=== PATIENT | female | born 1955 | race Caucasian/White ===

== ENCOUNTER → 2016-07-29 | Outpatient (CLI) | payer BC ==
[2016-07-29 14:02] LABS: BLOOD UREA NITROGEN 11 mg/dL (7-22); BUN/CREATININE RATIO 18.33 (6-20); CALCIUM 8.9 mg/dL (8.7-10.7); EST GLOMERULAR FILTRATION > 60 (>60 ml/min/1.73m(2))
== END ==
LOC: MOB LAB 10:33
PROVIDERS: ATTEND Family Medicine
DX: M81.0 Age-related osteoporosis without current pathological fracture (principal)
CPT/HCPCS: 36415; 80048

== ENCOUNTER → 2016-08-01 | Outpatient (CLI) | payer BC ==
--- NOTE | 2016-08-01 15:31 | DI ---
RIGHT SHOULDER, 08/01/2016 10:51 AM: Clinical History: Acute right shoulder pain. Previous Exam: None at this facility. 3 views are submitted. There is no acute soft tissue, osseous, or joint abnormality. The visualized p ortions of the right lung including the apex are normal. Reading: Normal right shoulder exam.
== END ==
LOC: MOB RAD 10:53
PROVIDERS: ATTEND Family Medicine
DX: M25.511 Pain in right shoulder (principal); F17.200 Nicotine dependence, unspecified, uncomplicated
CPT/HCPCS: 73030

== ENCOUNTER → 2016-08-12 | Outpatient (CLI) | payer BC ==
[2016-08-12 15:08] LABS: HEMATOCRIT 40.1 % (37.0-47.0); HEMOGLOBIN 13.4 g/dL (12.0-16.0); MEAN CORPUSCULAR HEMOGLOBIN 31.7 PG (27-31); MEAN CORPUSCULAR HGB CONC 33.4 g/dL (33-37); MEAN CORPUSCULAR VOLUME 94.8 FL (81-99); MEAN PLATELET VOLUME 10.1 FL (7.4-12.2); RED BLOOD COUNT 4.23 10^6/uL (4.20-5.40)
[2016-08-12 15:19] LABS: BUN/CREATININE RATIO 27.27 (6-20); SERUM ALBUMIN 3.7 g/dL (3.5-4.8)
== END ==
LOC: MOB LAB 14:12
PROVIDERS: ATTEND Family Medicine
DX: I10 Essential (primary) hypertension (principal); R53.83 Other fatigue; E03.9 Hypothyroidism, unspecified; R42 Dizziness and giddiness; F17.200 Nicotine dependence, unspecified, uncomplicated
CPT/HCPCS: 36415; 80053; 84443; 85027

== ENCOUNTER → 2016-09-15 | Outpatient (CLI) | payer OTHER, BC ==
--- NOTE | 2016-09-15 14:57 | DI ---
MRI ORB/FAC AND/OR NCK W/WO CURRY,09/15/2016 10:05 AM: Clinical History: History of acoustic neuroma. Previous Exam: MRI cervical spine performed December 15, 2006 Findings: Multiplanar MR images are obtained through the brain both before and after the intravenous administra tion of contrast. Postsurgical changes are noted consistent with a prior right craniotomy. Posterior fossa is unremarkable. The upper cervical spine is also unremarkable. The orbits and parana kraig sinuses are normal. There is no abnormally restricted diffusion. High-resolution images through the posterior fossa demonstrate normal-appearing cranial nerves. The internal auditory canals are within normal limits. The cochlea and semicircular canals are within normal limits. The major vascular flow voids are unremarkable. The orbits are within normal limits. There is no abnormal enhancement. There is no abnormal FLAIR signal. There is mild rightward deviation of bony nasal septum. Impression: 1. No evidence of acoustic neuroma. 2. Postsurgical changes. 3. No other intracranial abnormalities.
== END ==
LOC: MRI 10:01
PROVIDERS: ATTEND Family Medicine
DX: Z86.018 Personal history of other benign neoplasm (principal)
CPT/HCPCS: 70543

== ENCOUNTER 2017-05-18 14:06 | Inpatient (IN) ==
--- NOTE | 2017-05-18 14:22 | PDOC ---
Nausea/Vomiting/Diarrhea HPI - General Chief Complaint: Nausea / Vomiting / Diarrhea Stated Complaint: stomach pain Date Seen by Provider: 05/18/17 Time Seen by Provider: 14:22 Source: POSITIVE: Patient, Old records Exam Limitations: POSITIVE: No limitations Nurse's Notes Reviewed & Considered: Yes - History of Present Illness Initial Comments: This is a well-developed, thin, 61-year-old female who appears older than her stated age. She comes in today complaining of nausea, and abdominal pain. Patient was seen in the emergency room 2 days ago for the same. She was diagnosed with ileitis and started on ciprofloxacin and Flagyl. She was heme positive on digital rectal exam and had external hemorrhoids present. She states she has not taking any medications until this morning because her pharmacy was closed Thursday even though she had been told that another pharmacy was open. She took some Zofran and her Cipro and Flagyl this morning at 9:30 and continued to have abdominal pain. She states that is she drinks anything at all she feels very nauseous and wants to throw up. She denies any diarrhea at this time. She denies any fevers, no chest pain or shortness of breath, no headache, no hematuria or dysuria. Patient underwent a cholecystectomy on May 06 and approximately 5 days ago developed symptoms of nausea and abdominal pain. Body Location Affected: REPORTS: Abdomen Timing: REPORTS: Constant Duration: <1 week Severity: Severe Quality: REPORTS: "Pain" Abdominal Pain Onset Location: REPORTS: RLQ, LLQ Abdominal Pain Radiation: REPORTS: RLQ, LLQ Context: REPORTS: None Modifying Factors: improves with: Nothing Associated Symptoms: REPORTS: Abdominal Pain Recent Care Received: REPORTS: Recently Seen, Treated by MD Any Prior Injuries Related to Current Complaint?: No - Patient Home Medications Home Medications: Home Medications Aspirin 1 tab ORAL QD tab 07/15/08 Calcium Carbonate/Vitamin D3 [Caltrate 600 W-D Tablet] 1 ea PO TID 07/15/08 Denosumab [Prolia] 60 mg SUBCUT Every 6 months ml 02/25/13 Omeprazole [Prilosec] 1 cap ORAL QD #30 cap 12/08/14 Albuterol Sulfate [Ventolin Hfa] 1 - 2 puff INH Q4-6H PRN #1 puff 02/14/16 Gabapentin 1 tab ORAL TID #90 tab 02/14/16 Tiotropium [place] [Spiriva Respimat] 1 puff INH QD #1 inh 02/14/16 Venlafaxine HCl ER [Effexor Xr] 2 cap ORAL QD #30 cap 02/14/16 Spironolact/Hydrochlorothiazid [Spironolactone-Hctz 25-25 Tab] 1 tab PO QD #30 tab 10/31/16 doxazosin 1 mg tablet 1 mg PO QHS #30 tab 03/09/17 levothyroxine 50 mcg tablet 50 mcg PO QD #90 tab 03/09/17 medroxyprogesterone 5 mg tablet 5 mg PO QD #30 tab 03/09/17 simvastatin 40 mg tablet 1 tab ORAL QHS #90 tab 03/09/17 valacyclovir 500 mg tablet 1 tab ORAL QD #90 tab 03/09/17 carvedilol 12.5 mg tablet 1 tab PO BID #60 tab 04/09/17 HYDROcodone/APAP 5/325 Tab [Saline 5/325 Tab] 1 - 2 tab PO Q4H PRN #30 tab conjugated estrogens 1.25 mg tablet 1.25 mg PO QDAY #30 tab 05/11/17 - Patient Allergies Allergies/Adverse Reactions: Allergies 3 Allergy/AdvReac Type Severity Reaction Status Date / Time oxycodone HCl [From Percocet] Allergy Mild NAUSEA Verified 05/18/17 14:18 Past Medical History - heen HEENT History: Hard of Hearing, Dentures/Partials Additional HEENT History: right ear Cardiovascular History: Hypertension, CAD, Hyperlipidemia Respiratory History: COPD Gastrointestinal History: GERD, Gallbladder Disease, Other (please comment) Additional Gastrointestinal History: chronic constipation Genitourinary History: Denies History Endocrine History: Hypothyroidism, Other (please comment) Additional Endocrine History: THYROID NODULE Musculoskeletal History: Osteoporosis, Back Pain, Joint Pain, Other (please comment) Prosthesis or Implant: Yes (neck, right eye lid) Additional Musculoskeletal History: LUMBAR SPONDYLOSIS. CERVICAL SPINE PAIN. OVERWEIGHT Neurological History: Denies History, Frequent Headaches Blood Disorders: Denies History Additional Blood Disorders History: CHRONIC HEPC- took the medication and come back clear Psychiatric History: Depression, Other (please comment) Additional Psychiatric History: INSOMNIA History of Sexually Transmitted Diseases: No Cancer History: Denies History History of MDRO: No History of Other Communicable Diseases: No Alcohol Use: None In the Past 12 Months, Have Used or Abuse Any Substance: None Previous Surgical History: Yes Type / Date of Surgery: TONSILLECTOMY. NEUROLOGIC SURGERY- brain tumor removed. LUMBAR DECOMPRESSION. left RCR. eye lid surgery. left ring finger sx. CERVICAL SPINE FUSION Anesthesia Reactions: No Malignant Hyperthermia: No Significant Family History: No pertinent family hx ROS - Limitations ROS Limitations: No Limitations Constitution: REPORTS: Denies Symptoms Cardiovascular: REPORTS: Denies Cardiac Symptoms Respiratory: REPORTS: Denies Resp Symptoms Neurological: REPORTS: Denies Neuro Symptoms Gastrointestinal: REPORTS: Abdominal Pain, Nausea Musculoskeletal: REPORTS: Denies MS Symptoms Genitourinary: REPORTS: Denies Symptoms Eyes: REPORTS: Denies Symptoms ENT: REPORTS: Denies Symptoms Skin: REPORTS: Denies Skin Symptoms Lympathic: REPORTS: Denies Lympathic Symptoms Immunologic: POSITIVE: Denies Symptoms Psychiatric: POSITIVE: Denies Psych Symptoms Nausea/Vomiting/Diarrhea Exam - General Appearance General Appearance: POSITIVE: Alert, Cooperative, No Evidence of Trauma, Moderate Distress - HEENT HEENT: POSITIVE: Head Inspection Nml, Eyes Inspection Nml, Ears Inspection Nml, Nose Inspection Nml, Oral/Dental Inspect. Nml, Pharynx Inspect. Nml, PERRL, EOMI - Neck Neck: POSITIVE: Supple, Normal Inspection, Non Tender - Respiratory Respiratory: POSITIVE: No Respiratory Distress, Breath Sounds Normal, Chest Non- Tender - Cardiovascular Cardiovascular: POSITIVE: Regular Rate and Rhythm, Heart Sounds Normal, Strong Pulses Peripheral Pulses: Radial (L): 4+ - Chest Chest: POSITIVE: Non Tender - Abdomen Abdomen: Soft: (All Quadrants), Normal Bowel Sounds: (All Quadrants), Denies Tenderness: (LUQ), (RUQ), No Splenomegaly: (All Quadrants), No Hepatomegaly: ( All Quadrants), No Guarding: (All Quadrants), No Rebound: (All Quadrants), No Palpable Pulse: (All Quadrants), No Palpabale Mass: (All Quadrants), No Distention: (All Quadrants), No Rigidity: (All Quadrants), Tenderness Noted: ( RLQ), (LLQ) - Back Back: POSITIVE: Normal Inspection - Skin Skin: POSITIVE: Intact, Normal For Race, Warm, Dry, No Rash - Extremities Extremity: Non-Tender: (All Extremities), Normal ROM: (All Extremities), Normal Inspection: (All Extremities), Pelvis Stable: (All Extremities) - Neurological / Psychological Neurological: POSITIVE: Affect Apporpriate, Oriented X3, Motor Normal, Sensation Normal N/V/D Progress - Results Reviewed by me Xrays/CTs/US Reviewed by me: Yes Discussed with Radiologist: Yes Lab Results Reviewed by Me: Yes CBC and BMP: 05/18/17 14:28 05/18/17 14:28 - Patient's Progress Pain Medication Addressed: POSITIVE: Yes Re-examine Time: 16:58 Status: POSITIVE: Improved MDM / ED Course: Patient was evaluated, an IV started, blood drawn and sent to the lab for studies, CT scan of her abdomen was obtained. Patient received a liter of normal saline, morphine sulfate, Zofran, and Invanz. Findings: CBC shows an improvement of her white count today to 12.5 which is down from 12.72 days ago. Comprehensive metabolic panel is fairly unremarkable with a potassium low at 129. CT scan shows terminal ileitis without perforation. Assessment: Terminal ileitis with abdominal pain and nausea with vomiting. Plan: Admission. - Consult Consult (If Yes, Name of Consulting MD & Time Called): Yes (Dr. Frances, 1655 hrs) Consulting MD will see pt:: POSITIVE: [facility] [place] Admit Counseled: POSITIVE: Patient, Family, RE: Lab Results, RE: Radiology Results, RE : DX, RE: Need for F/U Patient Care Time - Estimated PCT Patient Care Time (In Minutes): 45 Vital Signs - Recent Vital Signs Vital Signs: Vital Signs (Last 8 hours) Temp Pulse Resp BP Pulse Ox 05/18/17 14:06 97.7 F 91 16 196/100 97 - VS Reviewed Vital Signs Reviewed: Yes Discharge Clinical Impression: Abdominal pain, Nausea and vomiting, Terminal ileitis of small intestine Discharge Disposition: Admit to Inpatient Condition: Fair Patient Instructions Given at Discharge: Acute Nausea and Vomiting (ED), Acute Abdominal Pain (ED) Follow Up With: BRIDGETTE HAYNES [Primary Care Provider] - Date Decision to Admit to Inpatient: 05/18/17 Time Decision to Admit to Inpatient: 16:55
[2017-05-18] MEDS ORDERED: Sodium Chloride 0.9% 1,000 ML PRIMARY IV ONE (14:23)
[2017-05-18] MEDS ORDERED: ONDANSETRON 4 MG/2 ML VIAL IVP ONE ×2 (14:23→16:42)
[2017-05-18] MEDS ORDERED: MORPHINE SULFATE 4 MG/1 ML IVP ONE (14:23)
[2017-05-18 14:31] LABS: BASOPHILS # (AUTO) 0.01 10*3/UL; BASOPHILS % (AUTO) 0.1 % (0-1); EOSINOPHILS # (AUTO) 0.01 10*3/UL; EOSINOPHILS % (AUTO) 0.1 % (0-8); Hematocrit [HCT] 41.8 % (37.0-47.0); Hemoglobin [HGB] 14.2 g/dL (12.0-16.0); LYMPHOCYTES # (AUTO) 1.79 10*3/uL; MEAN CORPUSCULAR HEMOGLOBIN 31.2 PG (27-31); MEAN CORPUSCULAR VOLUME 91.9 FL (81-99); MEAN PLATELET VOLUME 9.9 FL (7.4-12.2); MONOCYTES # (AUTO) 1.12 10*3/UL (0.3-0.8); MONOCYTES % (AUTO) 8.9 % (5-15); NEUTROPHILS # (AUTO) 9.57 10*3/UL; NEUTROPHILS % (AUTO) 76.4 % (50-80); PLATELET MORPHOLOGY COMMENT NORMAL MORPHOLOGY (NORM); RBC MORPHOLOGY COMMENT NORMAL MORPHOLOGY (NORM); RED BLOOD COUNT 4.55 10^6/uL (4.20-5.40); WBC MORPHOLOGY COMMENT NORMAL MORPHOLOGY (NORM)
[2017-05-18 14:42] LABS: BLOOD UREA NITROGEN 15 mg/dL (7-22); BUN/CREATININE RATIO 18.75 (6-20); SERUM ALBUMIN 4.6 g/dL (3.5-4.8)
[2017-05-18] MEDS ORDERED: Ertapenem Inj 1 GM in Sodium Chloride 0.9% 100 ML IV ONE (15:54)
--- NOTE | 2017-05-18 16:36 | DI ---
CT Abdomen/Pelvis W Contrast,05/18/2017 2:23 PM: Clinical History: Abdominal pain. Previous Exam: May 16, 2017 Findings: Multiple helically acquired CT images are obtained through the abdomen and pelvis following the intra venous administration of 75 cc of Isovue 300. Is the liver is unremarkable except for some mild prominence of the intrahepatic biliary ducts which was not appreciated on the prior exam. The patient is status post cholecystectomy. The lung bases are clear. The pancreas is unremarkable. The spleen is also unremarkable. The appendix is normal. There is a trace amount of free fluid within the deep pelvis. The uterus and ovaries are not well evaluated, but are grossly normal. Degenerative changes of the spine are seen. There is some gentle dextroscoliosis of the mid lumbar sp ine centered at the L3/4 level. There is mild loss of intervertebral disc height at L5/S1. There is no mesenteric nor retroperitoneal lymphadenopathy. There is some thickening and inflammatory changes of the terminal ileum without obstruction. Impression: Trace amount of free fluid within the deep pelvis with some mild thickening of the terminal ileum and vague inflammatory changes. This is consistent with terminal ileitis.
--- NOTE | 2017-05-18 17:36 | PDOC ---
HPI - History of Present Illness Date of Service: 05/18/17 Chief Complaint: abd pain /nausea History of Present Illness: Is a very nice 61-year-old female comes to the ER complaining of some nausea and abdominal pain. She was seen 2 days ago in the emergency room diagnosed with colitis and was prescribed ciprofloxacin and Flagyl. She has not taken any by mouth meds at the pharmacy was closed but she did take antibiotics this morning. Continue to have abdominal pain returns to the ER he feels very nauseated and has stimulus to follow-up if she starts eating anything. No bright red blood per rectum no chest pain at this time or shortness of breath Past Medical History Medical History: COPD, GERD, Surgical History: Gallbladder surgery on May [address] Peres, had an acoustic neuroma removed from the right side of her head Tobacco Use: Current Every Day Smoker In the Past 12 Months, Have Used or Abuse Any of the Following Substance: None Medication / Allergies Home Medications: Home Medications 3 Medication Instructions Recorded Confirmed Type Aspirin 1 tab ORAL QD tab 07/15/08 05/18/17 History Calcium Carbonate/Vitamin D3 1 ea PO TID 07/15/08 05/18/17 History [Caltrate 600 W-D Tablet] Denosumab [Prolia] 60 mg SUBCUT Every 6 months ml 02/25/13 05/18/17 History Omeprazole [Prilosec] 1 cap ORAL QD #30 cap 12/08/14 05/18/17 History Albuterol Sulfate [Ventolin Hfa] 1 - 2 puff INH Q4-6H PRN #1 puff 02/14/1605/18 History Gabapentin 1 tab ORAL TID #90 tab 02/14/16 05/18/17 Rx Tiotropium [place] [Spiriva 1 puff INH QD #1 inh 02/14/16 05/18/17 Rx Respimat] Venlafaxine HCl ER [Effexor Xr] 2 cap ORAL QD #30 cap 02/14/16 05/18/17 Rx Spironolact/Hydrochlorothiazid 1 tab PO QD #30 tab 10/31/16 05/18/17 Rx [Spironolactone-Hctz 25-25 Tab] doxazosin 1 mg tablet 1 mg PO QHS #30 tab 03/09/17 05/18/17 Rx levothyroxine 50 mcg tablet 50 mcg PO QD #90 tab 03/09/17 05/18/17 Rx medroxyprogesterone 5 mg tablet 5 mg PO QD #30 tab 03/09/17 05/18/17 Rx simvastatin 40 mg tablet 1 tab ORAL QHS #90 tab 03/09/17 05/18/17 Rx valacyclovir 500 mg tablet 1 tab ORAL QD #90 tab 03/09/17 05/18/17 Rx carvedilol 12.5 mg tablet 1 tab PO BID #60 tab 04/09/17 05/18/17 Rx HYDROcodone/APAP 5/325 Tab [[place] 1 - 2 tab PO Q4H PRN #30 tab 05/06/17 Rx 5/325 Tab] conjugated estrogens 1.25 mg tablet 1.25 mg PO QDAY #30 tab 05/11/17 05/18/17 Rx Allergies/Adverse Reactions: Allergies 3 Allergy/AdvReac Type Severity Reaction Status Date / Time oxycodone HCl [From Percocet] Allergy Mild NAUSEA Verified 05/18/17 17:59 Review of Systems - Review of Systems All Systems: Reviewed & No Additional Complaints Except as Stated - Respiratory Respiratory: DENIES: Negative System Review, Cough, Sputum, Dyspnea At Rest, Dyspnea with Exertion, Pleuritic Pain, Hemoptysis, Wheezing, Other, See HPI - Cardiovascular Cardiovascular: DENIES: Negative System Review, Chest Pain, Edema, Syncope, Palpitations, Orthopnea, Paroxysmal Nocturnal Dyspnea, Other, See HPI Exam - Vitals Vital Signs: Vital Signs Temperature 97.7 F Temperature Source Temporal Artery Scan Pulse Rate [Pulse Oximeter] 91 Respiratory Rate 16 Blood Pressure [Left Arm] 196/100 Pulse Ox 97 Oxygen Delivery Method Room Air Height 5 ft 4 in Weight 120 lb - General General Appearance: No Acute Distress - Head Head Exam: Normal Inspection, Normocephalic, Atraumatic - Eye Eye Exam: POSITIVE: Normal Appearance, PERRL, EOMI, No Scleral Icterus - ENT Additonal ENT Exam Details: She had an acoustic neuroma removed many years ago which gave her deformity of her right face - Respiratory Respiratory Exam: POSITIVE: Decreased Breath Sounds - Cardiovascular Cardiovascular Exam: POSITIVE: RRR, No Murmur, No Clicks, No Gallops, No Rubs, PMI Non-Displaced - GI/Abdominal GI/Abdominal Exam: POSITIVE: Non Tender, Non Distended, Soft - Extremities Extremities Exam: POSITIVE: Normal Inspection, Full ROM, Normal Capillary Refill , No Clubbing Present, No Edema Present, No Cyanosis Present, Negative Codie's sign, Dosalis Pedis Pulses - Stong & Regular Results - Labs CBC and BMP: 05/18/17 14:28 05/18/17 14:28 Assessment and Plan - Patient Problems (1) Nausea and vomiting Current Visit: Yes Status: Acute Comment: IV antiemetics normal saline 75 an hour Code(s): R11.2 - Nausea with vomiting, unspecified (2) Terminal ileitis of small intestine Current Visit: Yes Status: Acute Comment: Invanz 1 g daily most likely will need a colonoscopy as an outpatient repeat labs in a.m. Code(s): K50.00 - Crohn's disease of small intestine without complications
[2017-05-18] MEDS ORDERED: LIDOCAINE W/ SODIUM BICARB 0.5 ML SYR SUBD PRN (17:52)
[2017-05-18] MEDS ORDERED: CALCIUM CARBONATE 500 MG (TUMS) CHEWABLE TABLET PO PRN (17:52)
[2017-05-18] MEDS ORDERED: ONDANSETRON 4 MG/2 ML VIAL IVP PRN (17:52)
[2017-05-18] MEDS ORDERED: DOCUSATE 100 MG CAPSULE PO PRN (17:52)
[2017-05-18] MEDS ORDERED: Non-Formulary Drug (Denosumab [Prolia] 60 MG) SUBCUT SCH (17:52)
[2017-05-18] MEDS: HYDROcodone-APAP 5 MG -325 MG TABLET PO PRN (19:11)
[2017-05-18] MEDS: GABAPENTIN 400 MG CAPSULE PO SCH (20:30)
[2017-05-18] MEDS: HEPARIN 5000 UNIT/1 ML SUBCUT SCH (20:30)
[2017-05-18] MEDS: Simvastatin Tab 40 MG TAB PO SCH (20:30)
[2017-05-18] MEDS: Calcium/Vit D 600mg/400u Tab 1 TAB TABLET PO SCH (20:30)
[2017-05-18] MEDS: DOXAZOSIN 2 MG TABLET PO SCH (20:30)
[2017-05-18] MEDS ORDERED: Sodium Chloride 0.9% 1,000 ML IV SCH (21:00)
[2017-05-18] MEDS: CARVEDILOL 12.5 MG TABLET PO SCH (21:02)
[2017-05-19] MEDS: HEPARIN 5000 UNIT/1 ML SUBCUT SCH ×3 (01:47→17:34)
[2017-05-19] MEDS: LEVOTHYROXINE 50 MCG TABLET PO SCH (04:48)
[2017-05-19 05:02] LABS: BASOPHILS # (AUTO) 0.01 10*3/UL; BASOPHILS % (AUTO) 0.1 % (0-1); EOSINOPHILS # (AUTO) 0.06 10*3/UL; EOSINOPHILS % (AUTO) 0.5 % (0-8); Hematocrit [HCT] 39.2 % (37.0-47.0); LYMPHOCYTES # (AUTO) 2.33 10*3/uL; MEAN CORPUSCULAR HGB CONC 33.2 g/dL (33-37); MEAN CORPUSCULAR VOLUME 93.6 FL (81-99); MEAN PLATELET VOLUME 10.8 FL (7.4-12.2); MONOCYTES # (AUTO) 0.95 10*3/UL (0.3-0.8); MONOCYTES % (AUTO) 8.3 % (5-15); NEUTROPHILS # (AUTO) 8.02 10*3/UL; NEUTROPHILS % (AUTO) 70.5 % (50-80); RED BLOOD COUNT 4.19 10^6/uL (4.20-5.40)
[2017-05-19 05:24] LABS: BLOOD UREA NITROGEN 12 mg/dL (7-22); SERUM ALBUMIN 3.6 g/dL (3.5-4.8)
[2017-05-19 05:33] LABS: PLATELET MORPHOLOGY COMMENT NORMAL MORPHOLOGY (NORM); RBC MORPHOLOGY COMMENT NORMAL MORPHOLOGY (NORM); WBC MORPHOLOGY COMMENT NORMAL MORPHOLOGY (NORM)
[2017-05-19] MEDS ORDERED: TIOTROPIUM BROMIDE INH SCH (07:00)
[2017-05-19] MEDS: HYDROcodone-APAP 5 MG -325 MG TABLET PO PRN ×2 (07:09→20:28)
[2017-05-19] MEDS: Spironolactone Tab 25 MG TAB PO SCH (07:10)
[2017-05-19] MEDS: HYDROCHLOROTHIAZIDE 25 MG TABLET PO SCH (07:10)
[2017-05-19] MEDS: OMEPRAZOLE 20 MG CAPSULE PO SCH (07:10)
[2017-05-19] MEDS: GABAPENTIN 400 MG CAPSULE PO SCH ×3 (08:47→20:30)
[2017-05-19] MEDS: VENLAFAXINE XR 75 MG CAP PO SCH (08:48)
[2017-05-19] MEDS: POTASSIUM CHLORIDE 20 MEQ TAB PO SCH ×2 (08:48→20:31)
[2017-05-19] MEDS: ASPIRIN 81 MG (BABY) CHEWABLE TABLET PO SCH (08:48)
[2017-05-19] MEDS: ESTROGENS,CONJUGATED 0.625 MG TABLET PO SCH (08:48)
[2017-05-19] MEDS: CARVEDILOL 12.5 MG TABLET PO SCH ×2 (08:49→20:30)
[2017-05-19] MEDS: Calcium/Vit D 600mg/400u Tab 1 TAB TABLET PO SCH ×3 (08:49→20:31)
[2017-05-19] MEDS: valACYclovir Tab 500 MG TAB PO SCH (08:49)
[2017-05-19] MEDS: Ertapenem Inj 1 GM in Sodium Chloride 0.9% 100 ML IV SCH (08:50)
[2017-05-19] MEDS ORDERED: Spironolactone Tab 25 MG TAB PO SCH (09:00)
[2017-05-19] MEDS ORDERED: medroxyPROGESTERone 5 MG TABLET PO SCH (09:00)
[2017-05-19] MEDS ORDERED: Acetaminophen 1000mg Inj 1,000 MG/100 ML VIAL IV ONE (09:03)
[2017-05-19] MEDS ORDERED: TIOTROPIUM BROMIDE 18 MCG CAPSULE INH SCH (11:00)
--- NOTE | 2017-05-19 13:51 | PDOC(PROG) ---
Date and Time of Service: 05/19/2017, 1348 Interval History: Patient seen earlier. Feeling much better. Able to tolerate some liquids, including 3 glasses of apple juice today. No nausea or vomiting. We reviewed the CT scan findings, and the patient has terminal ileitis, no history prior of Crohn's disease. No blood reported in the stool. She states that she's had hemorrhoidal bleeding in the past. She recently had her gallbladder removed. Outpatient plans are already in place for EGD and colonoscopy workup. Objective : Data - Labs CBC and BMP: 05/19/17 04:22 05/19/17 04:22 Objective : Exam - General General Appearance: No Acute Distress, Cooperative Additional General Exam Details: Vital Signs (24 hrs) Temp Pulse Pulse Pulse Resp BP BP 05/19/17 11:36 98.1 F 76 18 05/19/17 07:20 98.2 F 83 20 05/19/17 07:00 84 05/19/17 04:19 96.8 F 86 20 05/19/17 00:09 97.1 F 82 20 05/18/17 20:05 98.1 F 81 16 05/18/17 19:00 92 16 05/18/17 17:55 96.5 F L 89 16 199/95 05/18/17 17:51 97.8 F 92 20 05/18/17 14:06 97.7 F 91 16 196/100 BP Pulse Ox 05/19/17 11:36 158/68 96 05/19/17 07:20 177/68 92 05/19/17 07:00 05/19/17 04:19 208/82 93 05/19/17 00:09 170/60 94 05/18/17 20:05 191/74 95 05/18/17 19:00 05/18/17 17:55 100 05/18/17 17:51 194/73 95 05/18/17 14:06 97 - Head Head Exam: Normal Inspection, Normocephalic, Atraumatic Additional Head Exam Details: Patient used to have and eyelid droop on the right side, but has gold that has been injected into the eyelid to help close. She had nerve damage done from a prior acoustic neuroma removal. - Eye Eye Exam: No Scleral Icterus - Respiratory Respiratory Exam: Clear to Auscultation - Bilaterally, Breathing Non Labored - Cardiovascular Cardiovascular Exam: RRR, No Murmur, No Clicks, No Gallops, No Rubs, No JVD - GI/Abdominal GI/Abdominal Exam: Normal Bowel Sounds, Non Tender, Non Distended, Soft Additional GI/Abdominal Exam Details: Incisions from prior or recent cholecystectomy look good. Clean, dry, intact. - Extremities Extremities Exam: No Edema Present, No Cyanosis Present, Clubbing Present - Neurological Neurological Exam: Alert, Oriented x 3, Speech Intact / Clear, Moves All Extremities Equally Additional Neurological Exam Details: There is right-sided facial droop related to prior acoustic neuroma removal and nerve damage of the facial nerve. - Psychiatric Psychiatric Exam: Normal Affect, Normal Mood Assessment and Plan - Patient Problems (1) Terminal ileitis of small intestine Current Visit: Yes Status: Acute Code(s): K50.00 - Crohn's disease of small intestine without complications (2) Nausea and vomiting Current Visit: Yes Status: Resolved Code(s): R11.2 - Nausea with vomiting, unspecified (3) COPD (chronic obstructive pulmonary disease) Current Visit: Yes Status: Chronic Code(s): J44.9 - Chronic obstructive pulmonary disease, unspecified Qualifiers: COPD type: unspecified COPD Qualified Code(s): J44.9 - Chronic obstructive pulmonary disease, unspecified (4) Hypothyroid Current Visit: Yes Status: Chronic Onset Date: 09/07/14 Code(s): E03.9 - Hypothyroidism, unspecified Qualifiers: Hypothyroidism type: acquired Qualified Code(s): E03.9 - Hypothyroidism, unspecified (5) Hyperlipidemia Current Visit: Yes Status: Chronic Onset Date: 02/10/12 Code(s): E78.5 - Hyperlipidemia, unspecified Qualifiers: Hyperlipidemia type: unspecified Qualified Code(s): E78.5 - Hyperlipidemia , unspecified - Assessment / Plan Additional Assessment/Plan Details: Continue on antibiotics, IV fluids, and potassium replacement. We'll do stool studies and cultures to make sure this is not infectious. I spoke with surgery, Dr. Peres, whom the patient will see outpatient for EGD and colonoscopy. Would like to avoid that on an inpatient side unless there is an acute indication to proceed forward with that. Check electrolytes and white blood cell count in the morning. Continue clears today, hopefully advance diet tomorrow.
[2017-05-19] MEDS: Acetaminophen 1000mg Inj 1,000 MG/100 ML VIAL IV PRN (15:19)
[2017-05-19] MEDS: DOXAZOSIN 2 MG TABLET PO SCH (20:31)
[2017-05-19] MEDS: Simvastatin Tab 40 MG TAB PO SCH (20:31)
[2017-05-19] MEDS ORDERED: LABETALOL 20 MG/4 ML (5 MG/1 ML) SYRINGE IVP PRN (20:53)
[2017-05-20] MEDS: HEPARIN 5000 UNIT/1 ML SUBCUT SCH ×3 (01:42→17:50)
[2017-05-20] MEDS: HYDROcodone-APAP 5 MG -325 MG TABLET PO PRN ×3 (03:38→21:33)
[2017-05-20] MEDS: LEVOTHYROXINE 50 MCG TABLET PO SCH (05:30)
[2017-05-20 05:46] LABS: Hematocrit [HCT] 32.8 % (37.0-47.0); Hemoglobin [HGB] 10.7 g/dL (12.0-16.0); MEAN CORPUSCULAR HEMOGLOBIN 30.9 PG (27-31); MEAN CORPUSCULAR HGB CONC 32.6 g/dL (33-37); MEAN CORPUSCULAR VOLUME 94.8 FL (81-99); MEAN PLATELET VOLUME 10.5 FL (7.4-12.2); RED BLOOD COUNT 3.46 10^6/uL (4.20-5.40)
[2017-05-20 05:55] LABS: PLATELET MORPHOLOGY COMMENT NORMAL MORPHOLOGY (NORM); RBC MORPHOLOGY COMMENT NORMAL MORPHOLOGY (NORM); WBC MORPHOLOGY COMMENT NORMAL MORPHOLOGY (NORM)
[2017-05-20 05:57] LABS: BLOOD UREA NITROGEN 8 mg/dL (7-22); BUN/CREATININE RATIO 13.33 (6-20)
[2017-05-20 06:50] LABS: BAND NEUTROPHILS % 0 % (0-10); BASOPHILS % (MANUAL) 0 % (0-1); EOSINOPHILS % (MANUAL) 3 % (0-8); MONOCYTES % (MANUAL) 7 % (0-12); NEUTROPHILS % (MANUAL) 58 % (50-80)
[2017-05-20] MEDS: OMEPRAZOLE 20 MG CAPSULE PO SCH (06:57)
[2017-05-20] MEDS: HYDROCHLOROTHIAZIDE 25 MG TABLET PO SCH (06:57)
[2017-05-20] MEDS: Spironolactone Tab 25 MG TAB PO SCH (06:57)
[2017-05-20] MEDS ORDERED: TIOTROPIUM BROMIDE 18 MCG CAPSULE INH SCH (07:00)
[2017-05-20] MEDS: Ertapenem Inj 1 GM in Sodium Chloride 0.9% 100 ML IV SCH (08:51)
[2017-05-20] MEDS: VENLAFAXINE XR 75 MG CAP PO SCH (08:52)
[2017-05-20] MEDS: Calcium/Vit D 600mg/400u Tab 1 TAB TABLET PO SCH ×3 (08:52→21:34)
[2017-05-20] MEDS: ESTROGENS,CONJUGATED 0.625 MG TABLET PO SCH (08:52)
[2017-05-20] MEDS: GABAPENTIN 400 MG CAPSULE PO SCH ×3 (08:53→21:33)
[2017-05-20] MEDS: valACYclovir Tab 500 MG TAB PO SCH (08:53)
[2017-05-20] MEDS: POTASSIUM CHLORIDE 20 MEQ TAB PO SCH ×2 (08:53→21:34)
[2017-05-20] MEDS: ASPIRIN 81 MG (BABY) CHEWABLE TABLET PO SCH (08:54)
[2017-05-20] MEDS: CARVEDILOL 12.5 MG TABLET PO SCH ×2 (08:54→21:36)
[2017-05-20] MEDS: Acetaminophen 1000mg Inj 1,000 MG/100 ML VIAL IV PRN (09:42)
[2017-05-20] MEDS ORDERED: methylPREDNISolone 125 MG/2 ML VIAL IVP ONE (12:38)
[2017-05-20] MEDS: metroNIDAZOLE 500mg (Premix) 500 MG/100 ML BAG IV SCH ×2 (13:24→21:32)
[2017-05-20] MEDS: NORMAL SALINE 10 ML SYRINGE FLUSH IVP PRN ×2 (13:24→21:31)
--- NOTE | 2017-05-20 14:19 | PDOC(PROG) ---
Date and Time of Service: 05/20/2017, 1418 Interval History: No chest pain and no shortness breath. Developed abdominal pain as the morning went on. Is tolerating her diet without any nausea or vomiting. No blood in the stool, but she only has had some blood in her stool in the past. She will be scheduled as an outpatient for colonoscopy. Stool studies reviewed, and I discussed with surgery, I don't think this is infection and they agree. It's more likely Crohn's. Given her continued abdominal pain, I think we should change courses and treat her for presumed Crohn's exacerbation Objective : Data - Labs CBC and BMP: 05/20/17 05:30 05/20/17 05:30 Objective : Exam - General General Appearance: No Acute Distress, Cooperative Additional General Exam Details: Vital Signs (24 hrs) Temp Pulse Pulse Resp BP Pulse Ox 05/20/17 13:00 98.3 F 83 18 178/60 94 05/20/17 07:07 97.7 F 80 18 153/85 95 05/20/17 07:00 84 05/20/17 04:05 98.0 F 76 20 166/71 95 05/20/17 00:15 97.6 F 73 18 158/69 98 05/19/17 20:13 98.6 F 75 20 184/76 95 05/19/17 15:53 97.8 F 78 19 151/64 94 - Eye Eye Exam: No Scleral Icterus - ENT ENT Exam: Mucous Membranes Moist - Respiratory Respiratory Exam: Clear to Auscultation - Bilaterally, Breathing Non Labored - Cardiovascular Cardiovascular Exam: RRR, No Murmur, No Clicks, No Gallops, No Rubs, No JVD - GI/Abdominal GI/Abdominal Exam: Normal Bowel Sounds, Non Distended, Soft Additional GI/Abdominal Exam Details: Minimal tenderness to palpation. - Extremities Extremities Exam: No Clubbing Present, No Edema Present, No Cyanosis Present - Neurological Neurological Exam: Alert, Oriented x 3, Speech Intact / Clear, Moves All Extremities Equally Assessment and Plan - Patient Problems (1) Terminal ileitis of small intestine Current Visit: Yes Status: Acute Comment: Currently no rectal bleeding but has reported this in the past and it was attributed to hemorrhoids. Code(s): K50.00 - Crohn's disease of small intestine without complications Qualifiers: Digestive disease complication type: without complication Qualified Code(s) : K50.00 - Crohn's disease of small intestine without complications (2) Nausea and vomiting Current Visit: Yes Status: Resolved Code(s): R11.2 - Nausea with vomiting, unspecified (3) COPD (chronic obstructive pulmonary disease) Current Visit: Yes Status: Chronic Code(s): J44.9 - Chronic obstructive pulmonary disease, unspecified Qualifiers: COPD type: unspecified COPD Qualified Code(s): J44.9 - Chronic obstructive pulmonary disease, unspecified (4) Hypothyroid Current Visit: Yes Status: Chronic Onset Date: 09/07/14 Code(s): E03.9 - Hypothyroidism, unspecified Qualifiers: Hypothyroidism type: acquired Qualified Code(s): E03.9 - Hypothyroidism, unspecified (5) Hyperlipidemia Current Visit: Yes Status: Chronic Onset Date: 02/10/12 Code(s): E78.5 - Hyperlipidemia, unspecified Qualifiers: Hyperlipidemia type: unspecified Qualified Code(s): E78.5 - Hyperlipidemia , unspecified (6) Hypertension Current Visit: Yes Status: Acute Code(s): I10 - Essential (primary) hypertension Qualifiers: Hypertension type: essential hypertension Qualified Code(s): I10 - Essential (primary) hypertension - Assessment / Plan Additional Assessment/Plan Details: I will add steroids and Flagyl and stop Invanz. I don't think we are treating on colitis so much as a terminal ileitis probably related to Crohn's disease. Colonoscopy for biopsies will need to be done, and I discussed with surgery and they are comfortable with this treating for presumed Crohn's exacerbation and following with colonoscopy and biopsy as an outpatient. I would agree with that. Pain medications for abdominal pain when necessary. Hopefully tomorrow, we can get her on orals, we can send her home with a short course of prednisone at 40 mg daily along with Flagyl. Check labs tomorrow. Stop IV fluids. Potassium is repleted. Continue blood pressure management as we are now, but may need by mouth management for blood pressure.
[2017-05-20] MEDS ORDERED: HYDROmorphone 2 MG/1 ML IVP PRN (14:49)
[2017-05-20] MEDS ORDERED: NICOTINE 7 MG /DAY PATCH TRANSDERM ONE ×2 (15:00)
[2017-05-20] MEDS: methylPREDNISolone 125 MG/2 ML VIAL IVP SCH (21:29)
[2017-05-20] MEDS: DOXAZOSIN 2 MG TABLET PO SCH (21:32)
[2017-05-20] MEDS: Simvastatin Tab 40 MG TAB PO SCH (21:35)
[2017-05-21] MEDS: HEPARIN 5000 UNIT/1 ML SUBCUT SCH ×2 (02:57→09:28)
[2017-05-21 04:40] VITALS: RESP 18
[2017-05-21] MEDS: NORMAL SALINE 10 ML SYRINGE FLUSH IVP PRN (05:24)
[2017-05-21] MEDS: LEVOTHYROXINE 50 MCG TABLET PO SCH (05:24)
[2017-05-21] MEDS: metroNIDAZOLE 500mg (Premix) 500 MG/100 ML BAG IV SCH ×2 (05:25→13:55)
[2017-05-21] MEDS: OMEPRAZOLE 20 MG CAPSULE PO SCH (07:27)
[2017-05-21] MEDS: Spironolactone Tab 25 MG TAB PO SCH (07:27)
[2017-05-21] MEDS: HYDROCHLOROTHIAZIDE 25 MG TABLET PO SCH (07:27)
[2017-05-21] MEDS ORDERED: NICOTINE 7 MG /DAY PATCH TRANSDERM SCH (09:00)
[2017-05-21] MEDS: GABAPENTIN 400 MG CAPSULE PO SCH ×2 (09:27→14:00)
[2017-05-21] MEDS: methylPREDNISolone 125 MG/2 ML VIAL IVP SCH (09:27)
[2017-05-21] MEDS: valACYclovir Tab 500 MG TAB PO SCH (09:28)
[2017-05-21] MEDS: CARVEDILOL 12.5 MG TABLET PO SCH (09:28)
[2017-05-21] MEDS: ASPIRIN 81 MG (BABY) CHEWABLE TABLET PO SCH (09:28)
[2017-05-21] MEDS: ESTROGENS,CONJUGATED 0.625 MG TABLET PO SCH (09:28)
[2017-05-21] MEDS: POTASSIUM CHLORIDE 20 MEQ TAB PO SCH (09:28)
[2017-05-21] MEDS: VENLAFAXINE XR 75 MG CAP PO SCH (09:28)
[2017-05-21] MEDS: Calcium/Vit D 600mg/400u Tab 1 TAB TABLET PO SCH (09:29)
[2017-05-21] MEDS: HYDROcodone-APAP 5 MG -325 MG TABLET PO PRN (09:52)
[2017-05-21 11:18] VITALS: BP 164/74; TEMP 98.2; O2SAT 94
--- NOTE | 2017-05-21 14:57 | DCSUMMARY ---
Hospitalization Summary Admit Date: 05/18/2017 Discharge Date: 05/21/17 Primary Diagnosis:: terminal ileitis Hospital Course: This very pleasant 61-year-old female who recently had a cholecystectomy. 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 She was admitted with some abdominal pain increased and she had terminal ileitis noted on her CT scan. She has plans for an outpatient EGD and colonoscopy with surgery, I will likely proceed with that in the next or in the coming couple of weeks. We got stool cultures that are thus far not revealing of any infectious etiology. This looks more consistent with Crohn's disease. We started Flagyl and Solu-Medrol and the patient's pain and discomfort in her abdomen got much better very quickly. She is ready to eat a regular diet. She' s never had Crohn's disease before. I ordered inflammatory bowel markers in the serum that are pending as well. Today, no complaints of nausea, vomiting, chest pain, or shortness breath. The patient wants a regular diet and she is ready to go home. Assessment and Plan: 1. As per discharge assessments noted 2. Disposition: patient is discharged home. 3. Condition on discharge, stable and improved. 4. Diet: regular diet 5. Activities: resume normal activities 6. Follow-Up: 1. Dr. Peres next week, 05/26/2017. 2. 7. Medications at the Time of Discharge: Home Medications 3 Medication Instructions Recorded Confirmed Type Aspirin 1 tab ORAL QD tab 07/15/08 05/18/17 History Calcium Carbonate/Vitamin D3 1 ea PO TID 07/15/08 05/18/17 History [Caltrate 600 W-D Tablet] Denosumab [Prolia] 60 mg SUBCUT Every 6 months ml 02/25/13 05/18/17 History Omeprazole [Prilosec] 1 cap ORAL QD #30 cap 12/08/14 05/18/17 History Gabapentin 1 tab ORAL TID #90 tab 02/14/16 05/18/17 Rx Venlafaxine HCl ER [Effexor Xr] 2 cap ORAL QD #30 cap 02/14/16 05/18/17 Rx doxazosin 1 mg tablet 1 mg PO QHS #30 tab 03/09/17 05/18/17 Rx levothyroxine 50 mcg tablet 50 mcg PO QD #90 tab 03/09/17 05/18/17 Rx simvastatin 40 mg tablet 1 tab ORAL QHS #90 tab 03/09/17 05/18/17 Rx valacyclovir 500 mg tablet 1 tab ORAL QD #90 tab 03/09/17 05/18/17 Rx carvedilol 12.5 mg tablet 1 tab PO BID #60 tab 04/09/17 05/18/17 Rx HYDROcodone/APAP 5/325 Tab [[place] 1 - 2 tab PO Q4H PRN #30 tab 05/06/17 Rx 5/325 Tab] conjugated estrogens 1.25 mg tablet 1.25 mg PO QDAY #30 tab 05/11/17 05/18/17 Rx metroNIDAZOLE Tab [Flagyl Tab] 500 mg PO Q8H #15 tab 05/21/17 Rx predniSONE Tab [Deltasone Tab] 10 mg PO DAILY #30 tab 05/21/17 Rx 8. Time, care, counseling and coordination of care for this discharge is less than 30 minutes. Exam - Vitals Vital Signs: Vital Signs Temperature 98.2 F Temperature Source Temporal Artery Scan Pulse Rate [Apical] 84 Pulse Rate [Pulse Oximeter] 91 Pulse Rate 89 Respiratory Rate 18 Blood Pressure [Right Arm] 164/74 Blood Pressure [Left Arm] 170/71 Blood Pressure 199/95 Pulse Ox 94 Oxygen Delivery Method Room Air Height 5 ft 4 in Weight 121 lb - General General Appearance: No Acute Distress, Cooperative - Eye Eye Exam: POSITIVE: No Scleral Icterus - ENT ENT Exam: POSITIVE: Mucous Membranes Moist - Respiratory Respiratory Exam: POSITIVE: Clear to Auscultation - Bilaterally, Breathing Non Labored - Cardiovascular Cardiovascular Exam: POSITIVE: RRR, No Murmur, No Clicks, No Gallops, No Rubs, No JVD - GI/Abdominal GI/Abdominal Exam: POSITIVE: Normal Bowel Sounds, Non Tender, Non Distended, Soft - Extremities Extremities Exam: POSITIVE: No Edema Present, No Cyanosis Present - Neurological Neurological Exam: POSITIVE: Alert, Oriented x 3, Speech Intact / Clear, Moves All Extremities Equally Data Peritnent Studies: 05/19/17 05/20/17 05/20/17 04:22 05:30 05:30 WBC 9.15 Hgb 10.7 L Hct 32.8 L Plt Count 200 Neutrophils % (Manual) 58 Band Neutrophils % 0 Sodium 141 Potassium 4.0 Chloride 110 Carbon Dioxide 26 Anion Gap 5 BUN 8 Creatinine 0.6 Glucose 92 Calcium 9.0 Magnesium 1.7 Total Bilirubin 0.5 AST 37 ALT 32 Alkaline Phosphatase 69 Total Protein 6.5 Albumin 3.6 Globulin 3.0 Microbiology 05/19/17 13:00 Stool WBC Smear - Final 05/19/17 13:00 Stool Stool Culture - Pending 05/19/17 13:00 Stool Clostridium difficile (PCR) - Final 05/19/17 13:00 Stool Cryptosporidium/Giardia - Final C. difficile negative, cryptosporidium and Giardia, are negative as well. A few white blood cells were noted in the stool. Patient Problems - Patient Problem List (1) Terminal ileitis of small intestine Current Visit: Yes Status: Acute Code(s): K50.00 - Crohn's disease of small intestine without complications Qualifiers: Digestive disease complication type: without complication Qualified Code(s) : K50.00 - Crohn's disease of small intestine without complications Category: Medical (2) Nausea and vomiting Current Visit: Yes Status: Resolved Code(s): R11.2 - Nausea with vomiting, unspecified Category: Medical (3) COPD (chronic obstructive pulmonary disease) Current Visit: Yes Status: Chronic Code(s): J44.9 - Chronic obstructive pulmonary disease, unspecified Qualifiers: COPD type: unspecified COPD Qualified Code(s): J44.9 - Chronic obstructive pulmonary disease, unspecified Category: Medical (4) Hypothyroid Current Visit: Yes Status: Chronic Onset Date: 09/07/14 Code(s): E03.9 - Hypothyroidism, unspecified Qualifiers: Hypothyroidism type: acquired Qualified Code(s): E03.9 - Hypothyroidism, unspecified Category: Medical (5) Hyperlipidemia Current Visit: Yes Status: Chronic Onset Date: 02/10/12 Code(s): E78.5 - Hyperlipidemia, unspecified Qualifiers: Hyperlipidemia type: unspecified Qualified Code(s): E78.5 - Hyperlipidemia , unspecified Category: Medical (6) Hypertension Current Visit: Yes Status: Acute Code(s): I10 - Essential (primary) hypertension Qualifiers: Hypertension type: essential hypertension Qualified Code(s): I10 - Essential (primary) hypertension Category: Medical
[2017-05-21] MEDS ORDERED: NICOTINE 7 MG /DAY PATCH TRANSDERM ONE (15:00)
[2017-05-22 10:03] LABS: NEUTROPHIL SPECIFIC ANTIBODIES Negative (Negative)
== END 2017-05-21 15:30 | disposition home or self-care (01) | DRG 387 ==
LOC: ER 14:06 → MED/SURG 17:22
PROVIDERS: ADMIT Internal Medicine; ATTEND Internal Medicine

== ENCOUNTER 2018-04-27 06:10 | Inpatient (IN) ==
[2018-04-27] MEDS ORDERED: Sodium Chloride 0.9% 1,000 ML PRIMARY IV ONE (06:47)
[2018-04-27 07:12] LABS: BILIRUBIN,URINE MODERATE (NEG); CLARITY,URINE CLEAR (CLEAR); COLOR,URINE YELLOW (Y); GLUCOSE, URINE (UA) NEGATIVE (NEG); OCCULT BLOOD,URINE LARGE (NEG); PH,URINE 6.5 (5.0-8.5); PROTEIN,URINE >300 mg/dl (NEG)
[2018-04-27 07:16] LABS: BASOPHILS # (AUTO) 0.02 10*3/UL; BASOPHILS % (AUTO) 0.1 % (0-1); EOSINOPHILS # (AUTO) 0.01 10*3/UL; EOSINOPHILS % (AUTO) 0.1 % (0-8); Hematocrit [HCT] 46.5 % (37.0-47.0); Hemoglobin [HGB] 16.2 g/dL (12.0-16.0); LYMPHOCYTES # (AUTO) 2.49 10*3/uL; MEAN CORPUSCULAR HEMOGLOBIN 30.3 PG (27-31); MEAN CORPUSCULAR HGB CONC 34.8 g/dL (33-37); MEAN CORPUSCULAR VOLUME 87.1 FL (81-99); MEAN PLATELET VOLUME 9.3 FL (7.4-12.2); MONOCYTES # (AUTO) 1.16 10*3/UL (0.3-0.8); MONOCYTES % (AUTO) 7.7 % (5-15); NEUTROPHILS # (AUTO) 11.44 10*3/UL; NEUTROPHILS % (AUTO) 75.5 % (50-80); RED BLOOD COUNT 5.34 10^6/uL (4.20-5.40)
--- NOTE | 2018-04-27 07:19 | EKG ---
[address] [address] Measurements Intervals [place] Rate: 85 P: 73 MI: 144 QRS: 75 QRSD: 104 T: 73 QT: 324 QTc: 367 Interpretive Statements SINUS RHYTHM VOLTAGE CRITERIA FOR LVH Compared to ECG 11/13/2015 09:35:21 Left ventricular hypertrophy now present Electronically Signed On 04-27-18 11:43:57 MST by Sajan Love [email or web address]
[2018-04-27 07:25] LABS: PLATELET MORPHOLOGY COMMENT NORMAL MORPHOLOGY (NORM); RBC MORPHOLOGY COMMENT NORMAL MORPHOLOGY (NORM); WBC MORPHOLOGY COMMENT NORMAL MORPHOLOGY (NORM)
[2018-04-27 07:30] LABS: URINE SAMPLE TYPE CATH SPECIMEN
[2018-04-27 07:31] LABS: AMPHETAMINE SCREEN NEGATIVE (NEG); BACTERIA,URINE MODERATE; CANNABINOID SCREEN,URINE NEGATIVE (NEG); COCAINE SCREEN NEGATIVE (NEG); METHADONE URINE SCREEN NEGATIVE (NEG); METHAMPHETAMINES SCREEN,URINE NEGATIVE (NEG); OPIATE SCREEN,URINE POSITIVE (NEG); RBC,URINE 60-80 /hpf; URINE SPECIFIC GRAVITY - MAN 1.025
[2018-04-27 07:32] LABS: BLOOD UREA NITROGEN 18 mg/dL (7-22); SERUM ALBUMIN 4.9 g/dL (3.5-4.8)
--- NOTE | 2018-04-27 08:08 | DI ---
XR CXR 2VW PA/LAT 04/27/2018 6:47 AM History: [facility] – [place] DI ^confusion Comparison: CT PE 06/16/2006. Findings: PA and lateral views of the chest demonstrate normal aeration without focal consolidation. There is no pneumothorax or pleural effusion. The cardiomediastinal silhouette is normal in size with tortuosity of the thoracic aorta. The osseous structures are normal for age. Surgical clips project over the right upper quadrant and surgical hardware projects over the cervicothoracic junction. Impression: No radiographic evidence of acute cardiopulmonary process.
--- NOTE | 2018-04-27 08:11 | DI ---
CT Head WO Contrast 04/27/2018 6:47 AM [place] [facility] [place] Comparison: None. Procedure: Noncontrast axial, sagittal, and coronal CT images through the head were obtained. Findings: There is evidence of prior right frontotemporal craniotomy. Metallic density projects over the right anterior globe, creating artifact and limits evaluation of the anatomic detail at this leve l. There is no intracranial hemorrhage or extra-axial fluid collection. The ventricles are normal in size and configuration. There is normal ojeda-white differentiation without focal mass or mass-effect. The visualized portions of the paranasal sinuses are clear. Orbits and facial soft tissues are unre markable. Review of the osseous structures shows no depressed calvarial fracture or aggressive osseo us lesion. The mastoid air cells are clear. Impression: No acute intracranial findings.
--- NOTE | 2018-04-27 08:55 | DI ---
CT Abdomen/Pelvis W Contrast 04/27/2018 7:58 AM History: [facility] [place] DI ^abdominal pain Comparison: 08/22/2017. Technique: Imaging was performed with a multi-detector CT scanner. Data acquisition was obtained from the dome of the diaphragm through the pubic symphysis without oral contrast and after the uneventful administration of 65 mL of Isovue intravenous contrast material. Multiplanar reformations were perfo rmed. Findings: The lung bases are notable for bibasilar fibrotic changes and a right middle lobe subpleural nodule, not significantly changed from prior imaging. There is no dense consolidation, pleural effusion, or p neumothorax. There are surgical clips in gallbladder fossa. There is normal CT appearance of the liver, adrenal gl ands, spleen, kidneys, and pancreas. The duodenum and several loops of small bowel in the left upper quadrant are prominent, though not distended by CT size criteria. Additionally, there is stool and ga s distally. The appendix is unremarkable. There is no free intraperitoneal air or fluid. No abdominop elvic lymphadenopathy is present. The uterus and adnexa are unremarkable, though better evaluated wit h pelvic ultrasound. Vascular structures are intact with atheromatous aortoiliac calcifications. Ther e is no inguinal or abdominal wall hernia. The osseous structures are within normal limits for the patient's age. Impression: 1. There are several prominent loops of proximal small bowel, although there is stool and gas distall y. This is a nonspecific finding that can be seen in the setting of ileus, although partial or early complete small bowel obstruction could have a similar appearance in the correct clinical setting.
--- NOTE | 2018-04-27 08:58 | PDOC ---
General Adult HPI - General Chief Complaint: Abdomen Pain Stated Complaint: DIARRHEA, ABD PAIN, DISORIENTATION X2 DAYS Date Seen by Provider: 04/27/18 Time Seen by Provider: 06:25 Source: POSITIVE: Patient, Other (sister) Exam Limitations: POSITIVE: Clinical condition Nurse's Notes Reviewed & Considered: Yes - History of Present Illness Initial Comment: The patient is a 62-year-old female who is brought to the emergency room by her sister. Sr. does not live with the patient and has not seen the patient for over a week. The patient's cousin, who does live with the patient, called the sister and stated that for the past one and a half to 2 days the patient has been complaining of some diarrhea and abdominal pain. Patient is also been intermittently confused. Patient has a history of Clostridium differential [place] for which she was hospitalized in July, and the patient's sister states that at that time she had symptoms similar to her present symptoms. The sister states that she thinks the patient fell Thursday. She has a history of chronic pain to her neck. Have you received a tetanus shot in the past 10 years?: Yes Body Location Affected: REPORTS: Abdomen, Other (As above) Timing: REPORTS: Gradual, Getting Worse Duration: >24 hours (1-1/2-2 days) Severity: Moderate Quality: REPORTS: "Pain" (Patient has complained of abdominal pain to family members over the past 2 days) Context: REPORTS: Fall (Sister reports that the patient fell Thursday) Modifying Factors: improves with: Nothing Similar Symptoms Previously: Yes (similar episode in July, diagnosed with C. difficile at that time) Recent Care Received: REPORTS: Denies Any Prior Injuries Related to Current Complaint?: No - Patient Home Medications Home Medications: Home Medications Calcium Carbonate/Vitamin D3 [Caltrate 600 W-D Tablet] 3 ea PO DAILY 07/15/08 Denosumab [Prolia] 60 mg SUBCUT Every 6 months ml 02/25/13 Omeprazole [Prilosec] 1 cap ORAL QD #30 cap 12/08/14 Venlafaxine HCl ER [Effexor Xr] 2 cap ORAL QD #30 cap 02/14/16 HYDROcodone/APAP 5/325 Tab [[place] 5/325 Tab] 1 - 2 tab PO Q4H PRN #30 tab 05/06/17 aspirin 81 mg tablet,delayed release 1 tab PO QDAY tab 05/26/17 conjugated estrogens 1.25 mg tablet 1.25 mg PO QDAY #30 tab 07/23/17 Gabapentin 1,600 mg ORAL BEDTIME 08/22/17 Budesonide [Budesonide EC] 9 mg PO DAILY PRN 08/23/17 Nystatin Susp [Mycostatin Susp] 500,000 unit PO QID #150 ml 08/24/17 levothyroxine 50 mcg tablet 50 mcg PO QD #90 tab 09/02/17 simvastatin 20 mg tablet 20 mg PO QHS #90 tab 09/02/17 amlodipine 2.5 mg tablet 2.5 mg PO BID #30 tab 04/16/18 carvedilol 12.5 mg tablet 12.5 mg PO BID #60 tab 04/16/18 doxazosin 1 mg tablet 1 mg PO QHS #30 tab 04/16/18 valacyclovir 500 mg tablet 500 mg PO QD #90 tab 04/16/18 - Patient Allergies Allergies/Adverse Reactions: Allergies Allergy/AdvReac Type Severity Reaction Status Date / Time oxycodone HCl [From Percocet] Allergy Mild NAUSEA Verified 04/27/18 06:31 Past Medical History - heen HEENT History: Hard of Hearing, Dentures/Partials Additional HEENT History: right ear. ACOUSTIC NEUROMOA Cardiovascular History: Hypertension, CAD, Hyperlipidemia Respiratory History: COPD, Other (please comment) Additional Respiratory History: CHRONIC TOBACCO ABUSE Gastrointestinal History: GERD, Gallbladder Disease, Other (please comment) Additional Gastrointestinal History: chronic constipation. new onset of diarrhea. C. DIFFICILE X2 IN 2018 Genitourinary History: Denies History Endocrine History: Hypothyroidism, Other (please comment) Additional Endocrine History: THYROID NODULE Musculoskeletal History: Osteoporosis, Back Pain, Joint Pain, Other (please comment) Prosthesis or Implant: Yes (neck, right eye lid) Additional Musculoskeletal History: LUMBAR SPONDYLOSIS. CERVICAL SPINE PAIN. OVERWEIGHT Neurological History: Frequent Headaches Additional Neurological History: BRAIN SURGERY 2010/ACOUSTIC NEUROMA Blood Disorders: Other (please comment) Additional Blood Disorders History: CHRONIC HEP C- MEDICALLY TREATED AND CLEARED Psychiatric History: Depression, Other (please comment) Additional Psychiatric History: INSOMNIA History of Sexually Transmitted Diseases: No Female Reproductive History: Denies History Cancer History: Denies History In Past Year Been Physically Harmed or Verbally Threatened: No (PER PATIENT) History of MDRO: No History of Other Communicable Diseases: No Tobacco Use: Current Every Day Smoker Alcohol Use: None In the Past 12 Months, Have Used or Abuse Any Substance: None Previous Surgical History: Yes Type / Date of Surgery: TONSILLECTOMY. NEUROLOGIC SURGERY-ACOUSTIC NEUROMA- brain tumor removed. LUMBAR DECOMPRESSION. left RCR. r eye lid surgery. left ring finger sx. CERVICAL SPINE FUSION. tubal Anesthesia Reactions: No Malignant Hyperthermia: No Family History of Malignant Hyperthermia: No Significant Family History: No pertinent family hx Past Medical History Reviewed: Reviewed - No Changes ROS - Limitations ROS Limitations: Clinical Condition (Patient was slow to answer questions and appeared somewhat confused upon arrival.) Constitution: REPORTS: Denies Symptoms Cardiovascular: REPORTS: Denies Cardiac Symptoms Respiratory: REPORTS: Denies Resp Symptoms Neurological: REPORTS: Confusion Gastrointestinal: REPORTS: Abdominal Pain, Diarrhea Endocrine: REPORTS: Denies Symptoms Musculoskeletal: REPORTS: Denies MS Symptoms Genitourinary: REPORTS: Denies Symptoms Eyes: REPORTS: Denies Symptoms ENT: REPORTS: Denies Symptoms Skin: REPORTS: Denies Skin Symptoms Lympathic: REPORTS: Denies Lympathic Symptoms Immunologic: POSITIVE: Denies Symptoms Psychiatric: POSITIVE: Denies Psych Symptoms General Adult Exam - General Appearance General Appearance: POSITIVE: No Acute Distress, Other (Patient initially confused to date and president. She would answer questions slowly and not very precisely.) - HEENT HEENT: POSITIVE: Head Inspection Nml, Eyes Inspection Nml, Ears Inspection Nml, Nose Inspection Nml, Oral/Dental Inspect. Nml, Pharynx Inspect. Nml, PERRL, EOMI - Pupils Pupil Size: 3 mm: Bilateral (PERRLA) - Neck Neck: POSITIVE: Normal Inspection, Thyroid Normal - Respiratory Respiratory: POSITIVE: No Respiratory Distress, Breath Sounds Normal, Chest Non- Tender - Cardiovascular Cardiovascular: POSITIVE: Regular Rate & Rhythm, No Murmur, No Gallop, PMI Normal Peripheral Pulses: Radial (R): 2+, Radial (L): 2+ - Abdomen Abdomen: Soft: (All Quadrants), Denies Tenderness: (LLQ), (RLQ), No Splenomegaly: (All Quadrants), No Hepatomegaly: (All Quadrants), No Guarding: (All Quadrants), No Rebound: (All Quadrants), No Palpable Pulse: (All Quadrants), No Palpabale Mass: (All Quadrants), No Distention: (All Quadrants), No Rigidity: (All Quadrants), Tenderness Noted: (RUQ), (LUQ) Additional Abdominal Details: Abdominal examination shows bowel sounds to be present. She does complain of some discomfort/pain on palpation over the upper abdomen, without masses, organomegaly or rebound - Back Back: POSITIVE: Normal Inspection. NEGATIVE: CVA Tenderness, Thoracic Tenderness, Lumbosacral Tenderness - Skin Skin: POSITIVE: Normal Color, Warm, Dry, No Rash - Extremities Extremity: Non-Tender: (All Extremities), Normal ROM: (All Extremities), Normal Inspection: (All Extremities) - Neurological / Psychological Neurological: POSITIVE: Oriented X3 (Initially not oriented to date or president), customer sales advisor Normal As Tested, Motor Normal, Sensation Normal, Disoriented To Time Images - Complete Complete: 1 - Some discomfort on palpation General Adult Progress - Results Reviewed by me Xrays/CTs/US Reviewed by me: Yes Discussed with Radiologist: No Radiology Findings: Chest x-ray normal per my interpretation; radiologist interpretation pending. CT of head without contrast pending. CT abdomen and pelvis with IV contrast pending Lab Results Reviewed by Me: Yes (potassium 2.8, white blood cell count 15,180, total creatinine 1195) Lab Results:: Laboratory Results 04/27/18 04/27/18 04/27/18 06:55 07:14 07:14 WBC 15.15 H RBC 5.34 Hgb 16.2 H Hct 46.5 MCV 87.1 MCH 30.3 MCHC 34.8 RDW Std Deviation 44.4 RDW Coeff of [place] 14.1 Plt Count 305 MPV 9.3 Immature Gran % (Auto) 0.2 Neut % (Auto) 75.5 Lymph % (Auto) 16.4 [place] % (Auto) 7.7 Eos % (Auto) 0.1 Baso % (Auto) 0.1 Immature Gran # (Auto) 0.03 Neut # (Auto) 11.44 Lymph # (Auto) 2.49 [place] # (Auto) 1.16 H Eos # (Auto) 0.01 Baso # (Auto) 0.02 WBC Morphology Comment Normal morphology Plt Morphology Comment Normal morphology RBC Morph Comment Normal morphology Sodium 137 Potassium 2.8 L Chloride 102 Carbon Dioxide 24 Anion Gap 11 BUN 18 Creatinine 0.6 Estimated GFR > 60 BUN/Creatinine Ratio 30.00 H Glucose 124 H Calculated Osmolality 286.0 Lactic Acid Calcium 10.4 Magnesium 2.1 Total Bilirubin 1.1 AST 96 H ALT 44 Alkaline Phosphatase 124 Total Creatine Kinase 1194 H CK-MB (CK-2) Troponin I C-Reactive Protein < 0.5 Total Protein 8.6 H Albumin 4.9 H Globulin 3.7 Albumin/Globulin Ratio 1.30 Amylase Lipase Ur Collection Type Cath specimen Urine Color Yellow Urine Clarity Clear Urine pH 6.5 Ur Specific [place] 1.025 U Specif Grav (Refrac) 1.025 Urine Protein >300 A Urine Glucose (UA) Negative Urine Ketones 15 Urine Occult Blood Large H Urine Nitrate Negative Urine Bilirubin Moderate Urine Urobilinogen 1.0 Ur Leukocyte Esterase Negative Urine RBC 60-80 A Urine WBC 7-10 Ur Squamous Epith Cells None Ur Renal Epithelial Cell None Urine Crystals None Urine Bacteria Moderate H Urine Casts None Urine Mucus Many Urine Trichomonas None Urine Yeast None Ur Culture Indicated? Culture set Urine Opiates Screen Positive H Ur Buprenorphine Negative Ur Oxycodone Screen Negative Urine Methadone Screen Negative Ur Propoxyphene Screen Negative Barbiturate Screen Negative U Tricyclic Antidepress Negative Phencyclidine Screen Negative Amphetamines Screen Negative U Methamphetamines Scrn Negative Benzodiazepines Screen Negative Cocaine Screen Negative U Marijuana (THC) Screen Negative Serum Alcohol < 10 04/27/18 04/27/18 04/27/18 07:14 07:14 07:14 WBC RBC Hgb Hct MCV MCH MCHC RDW Std Deviation RDW Coeff of [place] Plt Count MPV Immature Gran % (Auto) Neut % (Auto) Lymph % (Auto) [place] % (Auto) Eos % (Auto) Baso % (Auto) Immature Gran # (Auto) Neut # (Auto) Lymph # (Auto) [place] # (Auto) Eos # (Auto) Baso # (Auto) WBC Morphology Comment Plt Morphology Comment RBC Morph Comment Sodium Potassium Chloride Carbon Dioxide Anion Gap BUN Creatinine Estimated GFR BUN/Creatinine Ratio Glucose Calculated Osmolality Lactic Acid 1.5 Calcium Magnesium Total Bilirubin AST ALT Alkaline Phosphatase Total Creatine Kinase CK-MB (CK-2) 8.04 H Troponin I 0.041 H C-Reactive Protein Total Protein Albumin Globulin Albumin/Globulin Ratio Amylase 113 H Lipase Ur Collection Type Urine Color Urine Clarity Urine pH Ur Specific [place] U Specif Grav (Refrac) Urine Protein Urine Glucose (UA) Urine Ketones Urine Occult Blood Urine Nitrate Urine Bilirubin Urine Urobilinogen Ur Leukocyte Esterase Urine RBC Urine WBC Ur Squamous Epith Cells Ur Renal Epithelial Cell Urine Crystals Urine Bacteria Urine Casts Urine Mucus Urine Trichomonas Urine Yeast Ur Culture Indicated? Urine Opiates Screen Ur Buprenorphine Ur Oxycodone Screen Urine Methadone Screen Ur Propoxyphene Screen Barbiturate Screen U Tricyclic Antidepress Phencyclidine Screen Amphetamines Screen U Methamphetamines Scrn Benzodiazepines Screen Cocaine Screen U Marijuana (THC) Screen Serum Alcohol 04/27/18 07:14 WBC RBC Hgb Hct MCV MCH MCHC RDW Std Deviation RDW Coeff of [place] Plt Count MPV Immature Gran % (Auto) Neut % (Auto) Lymph % (Auto) [place] % (Auto) Eos % (Auto) Baso % (Auto) Immature Gran # (Auto) Neut # (Auto) Lymph # (Auto) [place] # (Auto) Eos # (Auto) Baso # (Auto) WBC Morphology Comment Plt Morphology Comment RBC Morph Comment Sodium Potassium Chloride Carbon Dioxide Anion Gap BUN Creatinine Estimated GFR BUN/Creatinine Ratio Glucose Calculated Osmolality Lactic Acid Calcium Magnesium Total Bilirubin AST ALT Alkaline Phosphatase Total Creatine Kinase CK-MB (CK-2) Troponin I C-Reactive Protein Total Protein Albumin Globulin Albumin/Globulin Ratio Amylase Lipase 204 Ur Collection Type Urine Color Urine Clarity Urine pH Ur Specific [place] U Specif Grav (Refrac) Urine Protein Urine Glucose (UA) Urine Ketones Urine Occult Blood Urine Nitrate Urine Bilirubin Urine Urobilinogen Ur Leukocyte Esterase Urine RBC Urine WBC Ur Squamous Epith Cells Ur Renal Epithelial Cell Urine Crystals Urine Bacteria Urine Casts Urine Mucus Urine Trichomonas Urine Yeast Ur Culture Indicated? Urine Opiates Screen Ur Buprenorphine Ur Oxycodone Screen Urine Methadone Screen Ur Propoxyphene Screen Barbiturate Screen U Tricyclic Antidepress Phencyclidine Screen Amphetamines Screen U Methamphetamines Scrn Benzodiazepines Screen Cocaine Screen U Marijuana (THC) Screen Serum Alcohol CBC and BMP: 04/27/18 07:14 04/27/18 07:14 EKG Interpreted/Reviewed By Me:: Yes EKG Interpretation:: POSITIVE: Normal Sinus Rhythm, Normal Rate, Normal Intervals, Normal [place], Normal QRS, Normal ST/T - Patient's Progress Pain Medication Addressed: POSITIVE: Not Applicable School/Work Release Addressed: POSITIVE: Not Applicable Re-Examine Time: 09:10 Re-Examine Comment: Patient did have a bowel movement in the emergency room which was sent to the lab for Clostridium difficile and culture and cryptosporidium and Giardia. Following administration of normal saline patient sensorium seems to be improved. She answers questions more briskly and is now alert to person place and time. Care of patient transferred to Dr. Vega at 0910 Status: POSITIVE: Improved, Re-Examined Antibiotics Given: No - Consult Counseled: POSITIVE: Patient, Family, RE: Lab Results, RE: Radiology Results, RE: DX, RE: Need for F/U Patient Care Time - Estimated PCT Patient Care Time (In Minutes): 60 Vital Signs - Recent Vital Signs Vital Signs: Vital Signs (Last 8 hours) Temp Pulse Pulse Resp BP Pulse Ox 04/27/18 07:19 85 04/27/18 06:10 97.4 F 103 H 16 205/93 96 - VS Reviewed Vital Signs Reviewed: Yes Discharge Clinical Impression: Abdominal pain, Hypokalemia, Diarrhea, Confusion Discharge Disposition: Other (Care of patient transferred to Dr. Vega [id number]) Condition: Fair Follow Up With: BRIDGETTE HAYNES [Primary Care Provider] - Care Transferred To: Dr. [id number]
[2018-04-27] MEDS ORDERED: LABETALOL 20 MG/4 ML (5 MG/1 ML) SYRINGE IVP ONE (09:30)
[2018-04-27] MEDS ORDERED: D5-1/2NS + 40mEq KCL 1,000 ML PRIMARY IV ONE (09:42)
[2018-04-27] MEDS ORDERED: Ertapenem Inj 1 GM in Sodium Chloride 0.9% 100 ML IV SCH (10:00)
--- NOTE | 2018-04-27 10:02 | PDOC ---
HPI - History of Present Illness History of Present Illness: This very nice 63-year-old female was a brought to the emergency room by her sister she's the patient lives alone and the sister did not see her for 1 week. Patient's sisters cousin called her coronary she's been having abdominal pain and diarrhea the last 3 days and supple with some confusion. Patient is awake and alert she walks with a white gait went to the bathroom had some stools. Denies chest pain or nausea appears very weak Past Medical History Medical History: 1. COPD. 2. Hypertension. 3. Hypothyroidism. 4. Hyperlipidemia. 5. 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 6. GERD. 7. History of hepatitis C with previous treatment for it, she was follwed by infectious disease in [place]. 8. History of chronic pain syndrome. 9. History of C. difficile infection. 10. History of admission back in May of this year for diarrhea, had ileitis on CT then. Surgical History: 1. History of cholecystectomy done in April this year. 2. 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 3. History of for neck surgeries before. 4. History of for lumbar spine surgery. 5. History of tonsillectomy. 6. History of tubal ligation Past Social History: She smokes, pack would last 3-4 days, doesn't drink or drugs. Tobacco Use: Current Every Day Smoker In the Past 12 Months, Have Used or Abuse Any of the Following Substance: None Medication / Allergies Home Medications: Home Medications Medication Instructions Recorded Confirmed Type Calcium Carbonate/Vitamin D3 3 ea PO DAILY 07/15/08 04/27/18 History [Caltrate 600 W-D Tablet] Denosumab [Prolia] 60 mg SUBCUT Every 6 months ml 02/25/13 04/27/18 History Omeprazole [Prilosec] 1 cap ORAL QD #30 cap 12/08/14 04/27/18 History Venlafaxine HCl ER [Effexor Xr] 2 cap ORAL QD #30 cap 02/14/16 04/27/18 Rx HYDROcodone/APAP 5/325 Tab [[place] 1 - 2 tab PO Q4H PRN #30 tab 05/06/17 04/27/18 Rx 5/325 Tab] aspirin 81 mg tablet,delayed 1 tab PO QDAY tab 05/26/17 04/27/18 History release conjugated estrogens 1.25 mg tablet 1.25 mg PO QDAY #30 tab 07/23/17 04/27/18 Rx Gabapentin 1,600 mg ORAL BEDTIME 08/22/17 04/27/18 History Budesonide [Budesonide EC] 9 mg PO DAILY PRN 08/23/17 04/27/18 History Nystatin Susp [Mycostatin Susp] 500,000 unit PO QID #150 ml 08/24/17 04/27/18 Rx levothyroxine 50 mcg tablet 50 mcg PO QD #90 tab 09/02/17 04/27/18 Rx simvastatin 20 mg tablet 20 mg PO QHS #90 tab 09/02/17 04/27/18 Rx amlodipine 2.5 mg tablet 2.5 mg PO BID #30 tab 04/16/18 04/27/18 Rx carvedilol 12.5 mg tablet 12.5 mg PO BID #60 tab 04/16/18 04/27/18 Rx doxazosin 1 mg tablet 1 mg PO QHS #30 tab 04/16/18 04/27/18 Rx valacyclovir 500 mg tablet 500 mg PO QD #90 tab 04/16/18 04/27/18 Rx Allergies/Adverse Reactions: Allergies Allergy/AdvReac Type Severity Reaction Status Date / Time oxycodone HCl [From Percocet] Allergy Mild NAUSEA Verified 04/27/18 06:31 Review of Systems - Review of Systems All Systems: Reviewed & No Additional Complaints Except as Stated - Constitutional Constitutional: REPORTS: General Health Poor - Respiratory Respiratory: REPORTS: Cough - Cardiovascular Cardiovascular: DENIES: Chest Pain, Edema - Gastrointestinal Gastrointestinal / Abdominal: REPORTS: Diarrhea, Poor Appetite - Neurological Neurologic: REPORTS: Weakness, Confusion, Difficulty Walking Exam - Vitals Vital Signs: Vital Signs Temperature 97.4 F Temperature Source Temporal Artery Scan Pulse Rate [Pulse Oximeter] 103 Pulse Rate 85 Respiratory Rate 16 Blood Pressure [Left Arm] 205/93 Pulse Ox 96 Oxygen Delivery Method Room Air Height 5 ft 6 in Weight 120 lb - General General Appearance: No Acute Distress, Cooperative - Head Head Exam: Normal Inspection, Normocephalic, Atraumatic - Eye Eye Exam: POSITIVE: Normal Appearance, PERRL, EOMI, No Scleral Icterus - Neck Neck Exam: Full ROM Additional Neck Exam Details: Right facial droop is chronic impairment from neck surgery patient and family states - Cardiovascular Cardiovascular Exam: POSITIVE: RRR, No Murmur, No Clicks, No Gallops, No Rubs, PMI Non-Displaced - GI/Abdominal GI/Abdominal Exam: POSITIVE: Normal Bowel Sounds, Non Tender, Non Distended, Soft, No Masses, No Hepatomegaly, No Splenomegaly, No Organomegaly - Extremities Extremities Exam: POSITIVE: No Clubbing Present, No Edema Present - Neurological Neurological Exam: POSITIVE: Alert, Oriented x 3, Speech Intact / Clear Results - Labs CBC and BMP: 04/27/18 07:14 04/27/18 07:14 Assessment and Plan - Patient Problems (1) Rhabdomyolysis Current Visit: Yes Status: Acute Code(s): M62.82 - Rhabdomyolysis (2) Ileus Current Visit: Yes Status: Acute Code(s): K56.7 - Ileus, unspecified (3) UTI (urinary tract infection) Current Visit: Yes Status: Acute Code(s): N39.0 - Urinary tract infection, site not specified (4) Abdominal pain Current Visit: Yes Status: Acute Code(s): R10.9 - Unspecified abdominal pain (5) Confusion Current Visit: Yes Status: Acute Code(s): R41.0 - Disorientation, unspecified (6) Diarrhea Current Visit: Yes Status: Acute Code(s): R19.7 - Diarrhea, unspecified Qualifiers: (7) Hypokalemia Current Visit: Yes Status: Acute Code(s): E87.6 - Hypokalemia - Assessment / Plan Additional Assessment/Plan Details: #1 most likely the rhabdomyolysis secondary to fall most likely being on the ground even though this was not witnessed I will hydrate the patient with lactated Ringer's insert Sheets catheter. #2 abdominal pain discuss case with general surgery CT abdomen and pelvis is negative no ileus or obstruction patient has diarrhea did have a bowel movement not too long ago and her room. She has Escherichia coli in her stool discussed the case with Dr. Allen infectious disease in cases where her Escherichia coli is found in the stool with no fever white count usually no treatment necessary but in this case with a white count of 15,000 and diarrhea and also a UTI he recommended cefuroxime by mouth 500 twice a day plus Flagyl for 7-10 days #3 urinary tract infection by UA start Invanz unsure about abdominal pathology #4 positive troponin rule out with serial cardiac enzymes #5 continue home meds for her peripheral neuropathy, depression, hypothyroidism, hypertension #6 gait imbalance order MRI of her head will have to give her 1 mg of Ativan so hopefully she will stay still in the scan #7 weight loss will also order a CT scan of the chest I discussed this with nursing and family members and patient all in agreement
[2018-04-27] MEDS ORDERED: MORPHINE SULFATE 2 MG/1 ML IVP PRN (10:43)
[2018-04-27] MEDS ORDERED: LIDOCAINE W/ SODIUM BICARB 0.5 ML SYR SUBD PRN (10:43)
[2018-04-27] MEDS ORDERED: Non-Formulary Drug (Denosumab [Prolia] 60 MG) SUBCUT SCH (10:43)
[2018-04-27] MEDS ORDERED: valACYclovir Tab 500 MG TAB PO SCH (10:43)
[2018-04-27] MEDS ORDERED: LIDOCAINE HCL 2 % 10 ML JELLY URO-JECT TOPICAL PRN (10:43)
[2018-04-27] MEDS ORDERED: ONDANSETRON 4 MG/2 ML VIAL IVP PRN (10:43)
[2018-04-27] MEDS ORDERED: LORazepam 2 MG/1 ML VIAL IV ONE (11:30)
[2018-04-27] MEDS: Lactated Ringers 1,000 ML PRIMARY IV SCH ×2 (12:16→20:19)
[2018-04-27] MEDS: CARVEDILOL 12.5 MG TABLET PO ONE ×2 (12:28→12:34)
[2018-04-27] MEDS: AmLODIPine Tab 2.5 MG TABLET PO ONE ×2 (12:28→12:34)
[2018-04-27] MEDS ORDERED: ENALAPRILAT DIHYDRATE 1.25 MG/1 ML VIAL IVP PRN (12:32)
--- NOTE | 2018-04-27 12:51 | DI ---
MRI Brain WO Contrast 04/27/2018 11:14 AM History: [facility] [place] DI ^imbalance Comparison: CT head from earlier the same day. Technique: Routine noncontrast multiecho multiplanar MR imaging of the brain was performed. Patient m otion creates artifact that limits evaluation of fine anatomic detail. Findings: Right frontotemporal postsurgical changes are noted. There is no evidence of acute or chron ic hemorrhage. No extra-axial fluid collections are present. There is no focal mass or mass-effect. T he ventricles and cisterns are normal in size and contour. There is normal anatomic appearance of th e midline structures. Scattered T2/FLAIR hyperintensities are present within the subcortical and gina ventricular white matter. There is no diffusion restriction. The cerebral vasculature is grossly nor mal in appearance. The orbits and paranasal sinuses are unremarkable. Impression: 1. Patient motion creates artifact that limits evaluation of fine anatomic detail. 2. No acute intracranial pathology within the limits of this exam. 3. Scattered T2/FLAIR hyperintensities are present within the subcortical and periventricular white m atter, a nonspecific finding that is most often seen in the setting of chronic small vessel ischemia in this age group. Clinical correlation is recommended.
[2018-04-27] MEDS ORDERED: NYSTATIN 100000 UNIT/1 ML - 5 ML UD CUP PO SCH (13:00)
--- NOTE | 2018-04-27 13:31 | CONSULT ---
Consult Note - Consult Consult Date: 04/27/18 Reason for Consult: PreOp Consulation : General Surgery Requesting Physician: Dr. Guzmán Primary Care Provider: Carlos Enrique Hemphill MD - History of Present Illness History of Present Illness: Came and evaluated the patient patient is really sleepy. Patient just received sedation medicine to go have an MRI of the brain. Patient's family tells him of the found edges incoherent and not really orientated. She's been having diarrhea. Patient has history of C. difficile infection. Stool cultures came back showing an Escherichia coli infection. Patient also started having acute urinary tract infection. Patient has an elevated troponin level. Review of Systems - Review of Systems ROS Unobtainable: Due to Mental Status Past Medical History Medical History: 1. COPD. 2. Hypertension. 3. Hypothyroidism. 4. Hyperlipidemia. 5. 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 6. GERD. 7. History of hepatitis C with previous treatment for it, she was follwed by infectious disease in [place]. 8. History of chronic pain syndrome. 9. History of C. difficile infection. 10. History of admission back in May of this year for diarrhea, had ileitis on CT then. Surgical History: 1. History of cholecystectomy done in April this year. 2. 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 3. History of for neck surgeries before. 4. History of for lumbar spine surgery. 5. History of tonsillectomy. 6. History of tubal ligation Past Social History: She smokes, pack would last 3-4 days, doesn't drink or drugs. Tobacco Use: Current Every Day Smoker In the Past 12 Months, Have Used or Abuse Any of the Following Substance: None Medication / Allergies Home Medications: Home Medications Medication Instructions Recorded Confirmed Type Calcium Carbonate/Vitamin D3 3 ea PO DAILY 07/15/08 04/27/18 History [Caltrate 600 W-D Tablet] Denosumab [Prolia] 60 mg SUBCUT Every 6 months ml 02/25/13 04/27/18 History Omeprazole [Prilosec] 1 cap ORAL QD #30 cap 12/08/14 04/27/18 History Venlafaxine HCl ER [Effexor Xr] 2 cap ORAL QD #30 cap 02/14/16 04/27/18 Rx HYDROcodone/APAP 5/325 Tab [[place] 1 - 2 tab PO Q4H PRN #30 tab 05/06/17 04/27/18 Rx 5/325 Tab] aspirin 81 mg tablet,delayed 1 tab PO QDAY tab 05/26/17 04/27/18 History release conjugated estrogens 1.25 mg tablet 1.25 mg PO QDAY #30 tab 07/23/17 04/27/18 Rx Gabapentin 1,600 mg ORAL BEDTIME 08/22/17 04/27/18 History Budesonide [Budesonide EC] 9 mg PO DAILY PRN 08/23/17 04/27/18 History Nystatin Susp [Mycostatin Susp] 500,000 unit PO QID #150 ml 08/24/17 04/27/18 Rx levothyroxine 50 mcg tablet 50 mcg PO QD #90 tab 09/02/17 04/27/18 Rx simvastatin 20 mg tablet 20 mg PO QHS #90 tab 09/02/17 04/27/18 Rx amlodipine 2.5 mg tablet 2.5 mg PO BID #30 tab 04/16/18 04/27/18 Rx carvedilol 12.5 mg tablet 12.5 mg PO BID #60 tab 04/16/18 04/27/18 Rx doxazosin 1 mg tablet 1 mg PO QHS #30 tab 04/16/18 04/27/18 Rx valacyclovir 500 mg tablet 500 mg PO QD #90 tab 04/16/18 04/27/18 Rx Allergies/Adverse Reactions: Allergies Allergy/AdvReac Type Severity Reaction Status Date / Time oxycodone HCl [From Percocet] Allergy Mild NAUSEA Verified 04/27/18 06:31 Results - Labs CBC and BMP: 04/27/18 07:14 04/27/18 07:14 Exam - Vitals Vital Signs: Vital Signs Temperature 97.7 F Temperature Source Temporal Artery Scan Pulse Rate [Pulse Oximeter] 96 Pulse Rate 81 Respiratory Rate 20 Blood Pressure [Left Arm] 207/99 Blood Pressure 183/80 Pulse Ox 98 Oxygen Delivery Method Room Air Height 5 ft 6 in Weight 113 lb - GI/Abdominal GI/Abdominal Exam: POSITIVE: Normal Bowel Sounds, Non Tender, Non Distended, Soft, No Masses, No Hepatomegaly, No Splenomegaly, No Organomegaly Assessment and Plan - Patient Problems (1) Diarrhea Current Visit: Yes Status: Acute Code(s): R19.7 - Diarrhea, unspecified Qualifiers: - Assessment / Plan Additional Assessment/Plan Details: Patient physical exam alone patient has no acute surgical pathology. CT scan is unremarkable. I believe the diarrhea secondary to the Escherichia coli infection. We'll need to coordinate the treatment Escherichia coli with the urinary tract infection. Reevaluate patient.
[2018-04-27] MEDS: LISINOPRIL 20 MG TABLET PO SCH (15:11)
[2018-04-27] MEDS: HYDROcodone-APAP 5 MG -325 MG TABLET PO PRN (15:11)
[2018-04-27] MEDS ORDERED: diphenhydrAMINE 50 MG/1 ML VIAL IVP ONE (15:47)
[2018-04-27] MEDS ORDERED: methylPREDNISolone 125 MG/2 ML VIAL IVP ONE (15:47)
[2018-04-27] MEDS: metroNIDAZOLE Tab 500 MG TAB PO SCH ×2 (16:10→20:20)
[2018-04-27] MEDS: HEPARIN 5000 UNIT/1 ML SUBCUT SCH ×2 (16:10→23:16)
[2018-04-27] MEDS ORDERED: LORazepam Inj(ETOH withdrawal) 2 MG/ML VIAL IVP PRN (19:30)
[2018-04-27] MEDS: DOXAZOSIN 2 MG TABLET PO SCH (20:19)
[2018-04-27] MEDS: CARVEDILOL 12.5 MG TABLET PO SCH (20:20)
[2018-04-27] MEDS: CEFUROXIME 500 MG TABLET PO SCH (20:20)
[2018-04-27] MEDS: Simvastatin Tab 20 MG TAB PO SCH (20:20)
[2018-04-27] MEDS ORDERED: GABAPENTIN 400 MG CAPSULE PO SCH (21:00)
[2018-04-27] MEDS ORDERED: AmLODIPine Tab 2.5 MG TABLET PO SCH (21:00)
[2018-04-28] MEDS: Lactated Ringers 1,000 ML PRIMARY IV SCH (04:11)
[2018-04-28] MEDS: LEVOTHYROXINE 50 MCG TABLET PO SCH (04:55)
[2018-04-28 05:13] LABS: BASOPHILS # (AUTO) 0 10*3/UL; BASOPHILS % (AUTO) 0 % (0-1); EOSINOPHILS # (AUTO) 0 10*3/UL; EOSINOPHILS % (AUTO) 0 % (0-8); Hematocrit [HCT] 40.1 % (37.0-47.0); Hemoglobin [HGB] 13.6 g/dL (12.0-16.0); LYMPHOCYTES # (AUTO) 1.14 10*3/uL; MEAN CORPUSCULAR HEMOGLOBIN 30.4 PG (27-31); MEAN CORPUSCULAR HGB CONC 33.9 g/dL (33-37); MEAN CORPUSCULAR VOLUME 89.7 FL (81-99); MEAN PLATELET VOLUME 9.6 FL (7.4-12.2); MONOCYTES # (AUTO) 0.64 10*3/UL (0.3-0.8); MONOCYTES % (AUTO) 6.3 % (5-15); NEUTROPHILS # (AUTO) 8.37 10*3/UL; NEUTROPHILS % (AUTO) 82.4 % (50-80); RED BLOOD COUNT 4.47 10^6/uL (4.20-5.40)
[2018-04-28 05:27] LABS: BLOOD UREA NITROGEN 13 mg/dL (7-22); SERUM ALBUMIN 3.8 g/dL (3.5-4.8)
[2018-04-28 05:35] LABS: PLATELET MORPHOLOGY COMMENT NORMAL MORPHOLOGY (NORM); RBC MORPHOLOGY COMMENT NORMAL MORPHOLOGY (NORM); WBC MORPHOLOGY COMMENT NORMAL MORPHOLOGY (NORM)
[2018-04-28] MEDS: POTASSIUM CHLORIDE 20 MEQ TAB PO SCH ×2 (05:58→20:26)
[2018-04-28] MEDS: HEPARIN 5000 UNIT/1 ML SUBCUT SCH ×2 (06:43→15:20)
[2018-04-28] MEDS: OMEPRAZOLE 20 MG CAPSULE PO SCH (06:43)
--- NOTE | 2018-04-28 07:19 | PDOC(PROG) ---
Interval History: Uneventful night patient now much more awake and coherent this morning oriented to place person and time she is hungry she does admit to drinking last week fell was on the ground for little bit but not too long denies chest pain nausea or vomiting I did tell her that what I was going to hold her Neurontin. She agrees with the plan Objective : Data - Labs CBC and BMP: 04/28/18 04:56 04/28/18 04:56 Objective : Exam - Respiratory Respiratory Exam: Clear to Auscultation - Bilaterally, Breathing Non Labored, Normal To Percussion, Normal to Percussion and Palpation - Cardiovascular Cardiovascular Exam: RRR, No Murmur, No Clicks, No Gallops, No Rubs, PMI Non-Displaced - GI/Abdominal GI/Abdominal Exam: Normal Bowel Sounds, Non Tender, Non Distended, Soft, No Masses, No Hepatomegaly, No Splenomegaly, No Organomegaly - Extremities Extremities Exam: No Clubbing Present, No Edema Present, No Cyanosis Present Assessment and Plan - Patient Problems (1) Rhabdomyolysis Current Visit: Yes Status: Acute Comment: Continue IV fluids check creatinine kinase Code(s): M62.82 - Rhabdomyolysis (2) Ileus Current Visit: Yes Status: Acute Comment: Present Dr. callum Shields reviewed CT scan patient is having some diarrhea secondary to Escherichia coli infection etiology unknown this is being treated with the recommendation of infectious disease Code(s): K56.7 - Ileus, unspecified (3) UTI (urinary tract infection) Current Visit: Yes Status: Acute Comment: Continue treatment as per infectious disease with antibiotics 7-10 days Code(s): N39.0 - Urinary tract infection, site not specified (4) Abdominal pain Current Visit: Yes Status: Acute Comment: Resolved Code(s): R10.9 - Unspecified abdominal pain (5) Confusion Current Visit: Yes Status: Acute Comment: The factorial secondary to UTI dehydration Code(s): R41.0 - Disorientation, unspecified (6) Diarrhea Current Visit: Yes Status: Acute Comment: Improving Code(s): R19.7 - Diarrhea, unspecified Qualifiers: (7) Hypokalemia Current Visit: Yes Status: Acute Comment: Continue replacement by mouth and IV fluids Code(s): E87.6 - Hypokalemia (8) Lethargy Current Visit: Yes Status: Acute Comment: MRI of head no stroke I will stop Neurontin no apparent and need for use they don't know why he was started stop narcotics no pain at present time consult PTOT Code(s): R53.83 - Other fatigue
[2018-04-28] MEDS ORDERED: VENLAFAXINE XR 75 MG CAP PO SCH (09:00)
[2018-04-28] MEDS: CEFUROXIME 500 MG TABLET PO SCH ×2 (09:13→20:25)
[2018-04-28] MEDS: ASPIRIN EC 81 MG TABLET PO SCH (09:14)
[2018-04-28] MEDS: CARVEDILOL 12.5 MG TABLET PO SCH ×2 (09:14→20:27)
[2018-04-28] MEDS: ESTROGENS,CONJUGATED 0.625 MG TABLET PO SCH (09:14)
[2018-04-28] MEDS: metroNIDAZOLE Tab 500 MG TAB PO SCH ×3 (09:14→20:27)
[2018-04-28] MEDS: LISINOPRIL 20 MG TABLET PO SCH (09:15)
[2018-04-28] MEDS: HYDROcodone-APAP 5 MG -325 MG TABLET PO PRN ×3 (09:15→20:27)
[2018-04-28] MEDS ORDERED: Ertapenem Inj 1 GM in Sodium Chloride 0.9% 100 ML IV SCH (11:00)
--- NOTE | 2018-04-28 15:25 | DI ---
CT CTA Chest Non-Coronary WWO 04/28/2018 7:00 AM History: [facility] [place] DI ^cough weight loss Comparison: Chest x-ray from 04/27/2018. CTA chest 06/16/2006. Procedure: CT angiography of the pulmonary arteries was performed after the administration of 50 mL o f Isovue intravenous contrast. Findings: There is normal opacification of the pulmonary arteries with no evidence of filling defect. The main pulmonary artery is dilated at 3 cm. Evaluation of the lungs demonstrates groundglass opaci ties in the right greater than left lower lobes. There are no new pulmonary nodules. There is no medi astinal or hilar lymphadenopathy. The aorta and branch vessels demonstrate normal course and caliber with scattered atheromatous calcifications. Heart size is within normal limits with no pericardial ef fusion. There are atheromatous calcifications in the distribution of the left anterior descending and right coronary arteries. The thyroid exhibits normal CT morphology. The visualized upper abdominal structures are notable for surgical clips in the gallbladder fossa. The osseous structures are notable for surgical changes of the lower cervical spine and multilevel de generative endplate changes. There is no evidence of acute or healing rib fractures. Impression: 1. No main or segmental pulmonary embolism. 2. There are groundglass opacities in the right greater than left lower lobes. This is a nonspecific finding with a broad differential that includes atelectasis, atypical infection, hypersensitivity pne umonitis, and pulmonary edema in the acute setting. Clinical correlation is recommended with followup 6 weeks following completion of therapy in order to to ensure resolution.
--- NOTE | 2018-04-28 15:46 | PTI REPORT ---
Thank you for the referral of Shelli Gabriel. She was seen on 04/28/18 for an inpatient evaluation secondary to weakness. SUBJECTIVE: The patient is a 62-year-old female. The patient reports she lives in [place] with her and her [id number]. She states she has a couple of stairs to get into her home. The patient states she was previously independent. The patient reports she is dizzy. PAST MEDICAL HISTORY: Past medical history can be found in the patient's medical record. OBJECTIVE FINDINGS: Bed mobility: The patient requires stand by assist for supine to sit transfer to the edge of the bed. Transfers: The patient requires contact guard assist x1 for sit to stand transfer with hand hold assist. Ambulation: The patient's gait was a little unsteady and she required hand hold assist for safety. ASSESSMENT: The patient is a 62-year-old female that presents with weakness and decreased balance. The patient would benefit from skilled therapy in order to improve functional mobility. The patient's prognosis for therapy is fair. Problem List: Decreased strength Decreased functional mobility Short-Term Goals: To be met by discharge from inpatient: Patient will be able to transfer independently. Patient will be independent with gait x150 feet. Patient will be able to ascend and descend one flight of stairs independently. Long-Term Goals: To be met following discharge from inpatient: Patient will benefit from outpatient physical therapy. Patient will be able to return home safely. TREATMENT PLAN: Patient will be seen B.I.D during the week and one time per day over the weekend as an inpatient for therapeutic exercise, neuromuscular reeducation, gait training, and functional activity. INITIAL TREATMENT: Treatment today consisted of the initial evaluation followed by the patient ambulating x300 feet with contact guard assist, IV pole, and hand hold assist. Following ambulation the patient was left in bed with bed alarm activated and call light within reach. [facility]
--- NOTE | 2018-04-28 16:27 | OT.PROG ---
Progress Note Progress Note: S: pt reports that she feels really weak. O: pt was seen in her room in supine position accompanied by her daughter. She completed bed mobility Ind to EOB and completed transfer entire way to therapy. She completed 10 min on Nu step to increase activity tolerance. She then transferred iNd to mat table where she received heat to B hips. While on heat she completed Ue exercises with RTB in all planes x15 to increase strength to assist with functional tasks. A: pt may continue to benefit from therapy to increase strength and activity tolerance. She appeared to transfer well today without use of walker or any other assistive device. P: continue per POC.
--- NOTE | 2018-04-28 16:59 | PT.PROG ---
Progress Note Progress Note: S. Patient stated that she is feeling alright. O. Patient was wheeled to the therapy gym where she performed exercises in the form of; heel slides, quad sets, glute sets, ankle pumps, short arc quads, heel toe raises, hip abduction/adduction, straight leg raises, seated long arc quads, marches, ball squeezes, clam shells, resisted knee flexion, heel toe raises, all x 10 bilaterally with yellow thera bands, Patient then ambulated 175 feet to her room and was left with call light and alarm. A. Patient tolerated therapy well, she was able to perform all exercises with no increase in pain or problems. Patient continues to require min assist with transfers and ambulation, she would continue to benefit from skilled therapy to increase strength, endurance, and safety at this time. P. Continue POC.
[2018-04-28] MEDS ORDERED: IBUPROFEN 800 MG TABLET PO ONE (18:44)
[2018-04-28] MEDS: DOXAZOSIN 2 MG TABLET PO SCH (20:27)
[2018-04-28] MEDS: Simvastatin Tab 20 MG TAB PO SCH (20:28)
[2018-04-28] MEDS ORDERED: ACETAMINOPHEN 500 MG TABLET PO PRN (22:57)
[2018-04-29] MEDS: HEPARIN 5000 UNIT/1 ML SUBCUT SCH ×2 (00:05→07:11)
[2018-04-29] MEDS: HYDROcodone-APAP 5 MG -325 MG TABLET PO PRN ×2 (00:53→05:57)
[2018-04-29] MEDS: LEVOTHYROXINE 50 MCG TABLET PO SCH (05:02)
[2018-04-29 05:09] LABS: BASOPHILS # (AUTO) 0.01 10*3/UL; BASOPHILS % (AUTO) 0.1 % (0-1); EOSINOPHILS # (AUTO) 0.04 10*3/UL; EOSINOPHILS % (AUTO) 0.3 % (0-8); Hemoglobin [HGB] 11.4 g/dL (12.0-16.0); LYMPHOCYTES # (AUTO) 3.98 10*3/uL; MEAN CORPUSCULAR HGB CONC 32.6 g/dL (33-37); MEAN CORPUSCULAR VOLUME 92.1 FL (81-99); MONOCYTES # (AUTO) 0.71 10*3/UL (0.3-0.8); MONOCYTES % (AUTO) 5.8 % (5-15); NEUTROPHILS # (AUTO) 7.46 10*3/UL; NEUTROPHILS % (AUTO) 61.1 % (50-80)
[2018-04-29 05:25] LABS: PLATELET MORPHOLOGY COMMENT NORMAL MORPHOLOGY (NORM); RBC MORPHOLOGY COMMENT NORMAL MORPHOLOGY (NORM); WBC MORPHOLOGY COMMENT NORMAL MORPHOLOGY (NORM)
[2018-04-29 05:37] LABS: BLOOD UREA NITROGEN 9 mg/dL (7-22); SERUM ALBUMIN 3.1 g/dL (3.5-4.8)
[2018-04-29] MEDS: OMEPRAZOLE 20 MG CAPSULE PO SCH (07:11)
[2018-04-29 07:58] VITALS: BP 161/70; RESP 20; TEMP 97.5; O2SAT 98
[2018-04-29] MEDS: ASPIRIN EC 81 MG TABLET PO SCH (08:47)
[2018-04-29] MEDS: CEFUROXIME 500 MG TABLET PO SCH (08:47)
[2018-04-29] MEDS: ESTROGENS,CONJUGATED 0.625 MG TABLET PO SCH (08:47)
[2018-04-29] MEDS: LISINOPRIL 20 MG TABLET PO SCH (08:47)
[2018-04-29] MEDS: CARVEDILOL 12.5 MG TABLET PO SCH (08:47)
[2018-04-29] MEDS: metroNIDAZOLE Tab 500 MG TAB PO SCH (08:48)
[2018-04-29] MEDS: POTASSIUM CHLORIDE 20 MEQ TAB PO SCH (08:48)
[2018-04-29] MEDS ORDERED: VENLAFAXINE HCL XR 150 MG CAP PO SCH (09:00)
--- NOTE | 2018-04-29 10:44 | DCSUMMARY ---
Hospitalization Summary Admit Date: 04/27/2018 Discharge Date: 04/29/18 Hospital Course: Discharge diagnoses 1. Diarrhea, stool positive for Escherichia coli 2. History of COPD 3. Hypertension 4. Hypothyroidism 5. Hyperlipidemia 6. History of acoustic neuroma surgery 7. GERD 8. History of hepatitis C 9. Minimal elevation in troponin need follow-up as an outpatient 10. History of C. difficile infection before 11. Hypokalemia replaced 12. groundglass opacities in the right greater than left lower lobes. This is a nonspecific finding with a broad differential, need follow-up as an outpatient per recommendation from radiology to repeat in 6 weeks. 13. Likely small vessel ischemic disease on MRI. Hospital course This is a 63 years old female who was brought to the hospital because of abdominal pain and diarrhea in addition there was some intermittent confusion because of that they brought her to the hospital and was admitted. She was admitted by Dr. Frances please see his note. Lab test did show elevated white count, abnormal UA,, minimal elevation in troponin, elevated CK. She did admit to drinking alcohol and usually she does not drink. Patient was admitted was put on IV fluids, because of abnormal UA and elevated white count and also positive stool test for Escherichia coli she was started on antibiotic after discussion with the ID. Patient was put on cefuroxime and Flagyl. CT of the abdomen was negative for ileus or obstruction After that was reviewed and discussed with surgery. Gradually there was improvement in her symptoms. I saw the patient on the day of discharge she was feeling much better. Denying symptoms. Exam was unremarkable except that she had an old facial droop. Patient was discharged home the plan was to continue with the cefuroxime for 5 days and give her additional days of Flagyl because of her history of previous C. difficile infection. Patient did have hypokalemia and that's was a replaced. She did have minimal elevation in troponin thus need follow-up as an outpatient. A CT of the chest was abnormal need follow-up as an outpatient probably secondary to smoking. May be any need to repeat CT in a few weeks per radiology recommendation. However her lung examination was unremarkable when I saw her. And she was asymptomatic. Laboratory Results 04/28/18 04/29/18 04/29/18 11:10 04:40 04:40 WBC 12.23 H RBC 3.80 L Hgb 11.4 L Hct 35.0 L MCV 92.1 MCH 30.0 MCHC 32.6 L RDW Std Deviation 46.4 RDW Coeff of Ariane 14.2 Plt Count 196 MPV 10.0 Immature Gran % (Auto) 0.2 Neut % (Auto) 61.1 Lymph % (Auto) 32.5 [place] % (Auto) 5.8 Eos % (Auto) 0.3 Baso % (Auto) 0.1 Immature Gran # (Auto) 0.03 Neut # (Auto) 7.46 Lymph # (Auto) 3.98 [place] # (Auto) 0.71 Eos # (Auto) 0.04 Baso # (Auto) 0.01 WBC Morphology Comment Normal morphology Plt Morphology Comment Normal morphology RBC Morph Comment Normal morphology Sodium 139 Potassium 4.0 D Chloride 112 Carbon Dioxide 22 L Anion Gap 5 BUN 9 Creatinine 0.5 Estimated GFR > 60 BUN/Creatinine Ratio 18.00 Glucose 97 Calculated Osmolality 286.0 Calcium 8.6 L Total Bilirubin 0.4 AST 49 H ALT 48 Alkaline Phosphatase 67 Total Creatine Kinase 315 H Total Protein 5.4 L Albumin 3.1 L Globulin 2.3 L Albumin/Globulin Ratio 1.30 Discharge instruction Diet regular Activity as started Medications Active Medications Acetaminophen (Tylenol) 1,000 mg PO Q8H PRN PRN Reason: HEADACHE Last Admin: 04/28/18 23:24 Dose: 1,000 mg Documented by: Hydrocodone Bitart/Acetaminophen ([place] 5/325 Tab) 1 tab PO Q4H PRN PRN Reason: Pain Last Admin: 04/29/18 05:57 Dose: 1 tab Documented by: Amlodipine Besylate (Norvasc) 10 mg PO DAILY [facility] Last Admin: 04/29/18 08:47 Dose: 10 mg Documented by: Aspirin (Aspirin Ec) 81 mg PO DAILY [facility] Last Admin: 04/29/18 08:47 Dose: 81 mg Documented by: Carvedilol (Coreg) 12.5 mg PO BID [facility] Last Admin: 04/29/18 08:47 Dose: 12.5 mg Documented by: Cefuroxime Axetil (Ceftin) 500 mg PO BID [facility] Last Admin: 04/29/18 08:47 Dose: 500 mg Documented by: Doxazosin Mesylate (Cardura) 1 mg PO BEDTIME [facility] Last Admin: 04/28/18 20:27 Dose: 1 mg Documented by: Enalaprilat (Vasotec Inj) 1.25 mg IVP Q6H PRN PRN Reason: SBP Greater Than 160 Last Admin: 04/27/18 13:53 Dose: 1.25 mg Documented by: Estrogens Conjugated (Premarin Tab) 1.25 mg PO DAILY [facility] Last Admin: 04/29/18 08:47 Dose: 1.25 mg Documented by: Heparin Sodium (Porcine) (Heparin Inj) 5,000 unit SUBCUT Q8H [facility] Last Admin: 04/29/18 07:11 Dose: 5,000 unit Documented by: Sodium Chloride (Normal Saline 0.9%) 25 mls @ 200 mls/hr IV .Post Infusion PRN PRN Reason: Flush Potassium Chloride/Sodium Chloride (Pot Chl 20meq + Ns) 1,000 mls @ 75 mls/hr PRIMARY IV .[id number] [facility] Last Admin: 04/28/18 23:25 Dose: 75 mls/hr Documented by: Levothyroxine Sodium (Synthroid) 50 mcg PO DAILY@0530 [facility] Last Admin: 04/29/18 05:02 Dose: 50 mcg Documented by: Lidocaine HCl (Lidocaine Buffered Inj) 0.5 ml SUBD ONCE PRN PRN Reason: IV Starts Lidocaine HCl (Xylocaine Uro-Ject 2%) 10 ml TOPICAL ONCE PRN PRN Reason: Discomfort catheter insertion Lisinopril (Prinivil) 20 mg PO DAILY [facility] Last Admin: 04/29/18 08:47 Dose: 20 mg Documented by: Lorazepam (Ativan Inj (Etoh Withdrawal)) 1 - 4 mg IVP .PER CIWA-AR PRN PRN Reason: CIWA-Ar score >8 Metronidazole (Flagyl Tab) 500 mg PO TID [facility] Last Admin: 04/29/18 08:48 Dose: 500 mg Documented by: Omeprazole (Prilosec) 20 mg PO AC BK [facility] Last Admin: 04/29/18 07:11 Dose: 20 mg Documented by: Ondansetron HCl (Zofran Inj) 4 mg IVP Q6H PRN PRN Reason: NAUSEA / VOMITING Potassium Chloride (Klor-Con) 40 meq PO BID [facility] Last Admin: 04/29/18 08:48 Dose: 40 meq Documented by: Simvastatin (Zocor) 20 mg PO BEDTIME [facility] Last Admin: 04/28/18 20:28 Dose: 20 mg Documented by: Venlafaxine HCl (Effexor Xr) 150 mg PO DAILY [facility] Last Admin: 04/29/18 08:47 Dose: 150 mg Documented by: Follow-up with PCP in 1-2 weeks Condition at discharge was stable for discharge Exam - Vitals Vital Signs: Vital Signs Temperature 97.5 F Temperature Source Temporal Artery Scan Pulse Rate [Pulse Oximeter] 75 Pulse Rate 90 Respiratory Rate 20 Blood Pressure [Left Arm] 161/70 Blood Pressure 160/64 Pulse Ox 98 Oxygen Delivery Method Room Air Height 5 ft 6 in Weight 118 lb 6.4 oz - General General Appearance: No Acute Distress, Cooperative - Head Head Exam: Normal Inspection - Eye Eye Exam: POSITIVE: Normal Appearance - ENT ENT Exam: POSITIVE: Normal Exam - Neck Neck Exam: Normal Inspection - Respiratory Respiratory Exam: POSITIVE: Clear to Auscultation - Bilaterally - Cardiovascular Cardiovascular Exam: POSITIVE: RRR - GI/Abdominal GI/Abdominal Exam: POSITIVE: Normal Bowel Sounds, Non Tender, Non Distended, Soft, No Organomegaly - Rectal Rectal Exam: POSITIVE: Deferred - External Exam: POSITIVE: Deferred - Extremities Extremities Exam: POSITIVE: Normal Inspection - Back Back Exam: POSITIVE: Normal Inspection - Neurological Neurological Exam: POSITIVE: Alert, Oriented x 3, Normal Gait Additional Neurological Exam Details: 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
--- NOTE | 2018-04-29 11:06 | OT.PROG ---
Progress Note Progress Note: Occupational Therapy: S: pt stated that she wanted to go home and is feeling better. O: tx consisted of bed mobility from supine to EOB independently, functional ambulation with SBA for safety x 120', 2 kg wall eli exercises of biceps, triceps, adduction, extension, IROT/EROT x10 each. pt was left with PT for fu rther therapy exercises. A: pt tolerated session well and pts balance has improved. P: continue POC
--- NOTE | 2018-04-29 14:11 | OTI REPORT ---
Thank you for the referral of Shelli Gabriel. She was seen on 04/28/18 for an occupational therapy inpatient evaluation secondary to weakness. SUBJECTIVE: The patient is a 62-year-old female who is being seen secondary to having abdominal pain and diarrhea in the emergency room. She demonstrates with confusion. The patient also has a diagnosis of rhabdomyolysis and a current UTI. The patient reports that she lives with her and her [id number]. The patient reports that she does not drink very often, but she did go out to have a drink with her family, came home, ended up going outside because she forgot her purse in her car, and fell on the sidewalk. She was found a couple of minutes later. The patient reports her typical day consists of sitting on the cough most of the day. She reports that she had c.diff for 10 months and that really wiped her system out as well as her strength and she has lost a lot of weight. The patient's goal is to get back to doing things that she likes to do and to get back to exercising a little bit more. The patient states that sometimes she gets weak in the shower. The patient states she can get on and off of her toilet okay. In her home, she does fall. She reports that she gets very dizzy at times and she states she gets dizzy daily. She contributes this to maybe some of her medications. She states that she takes quite a bit of medications throughout the day. PAST MEDICAL HISTORY: Past medical history can be found in the patient's medical record. OBJECTIVE FINDINGS: Bed mobility: The patient was able to come from supine to sit independently. Range of motion: While sitting edge of bed she demonstrates upper extremity range of motion that is within functional limits. Strength: The patient demonstrates strength of 3+/5 for shoulder flexion, abduction, elbow flexion/extension, and wrist flexion/extension. Endurance: The patient is a little bit shaky with activities; she states this is from weakness. Activity tolerance is fair. Ambulation: The patient ambulated from her room to the shower with min assist to keep her balance. The patient is a little bit impulsive with her turns and tends to turn kind of fast, which can affect her balance. Activities of daily living: The patient wanted to take a shower today. Once in the shower, the patient did need assistance with her back. She was able to sit on the chair. She demonstrated good flexibility with her legs as she put them on the chair to wash. The patient stood with stand by assist. The patient needed some assistance washing the back of her hair as she had her IV in the right elbow, which was hard to bend. The patient was able to dry self off and dress lower and upper extremities independently with increased time. The patient then ambulated back to her room. ASSESSMENT: Problem List: Decreased activity tolerance Decreased upper extremity strength Dizziness Generalized weakness Short-Term Goals: To be met by discharge from inpatient: Patient will increase upper extremity strength to 4+/5 to increase strength for ADLs and functional activities. Patient will be able to complete all functional transfers independently. Patient will learn three energy conservation techniques to improve her activity tolerance throughout the day. Long-Term Goals: To be met following discharge from inpatient: Patient will return home demonstrating safety and independence with all ADLs and functional activities. Patient would benefit from outpatient therapy to gain strength. TREATMENT PLAN: Patient will be seen B.I.D during the week and one time per day over the weekend as an inpatient to address the above goals and objectives. INITIAL TREATMENT: Treatment today consisted of the initial evaluation. The patient was wiped out after showering; she does fatigue quite easily. The patient was issued a shower chair to conserve energy when showering. The patient would benefit from energy conservation techniques as she does fatigue quite easily. Her rhabdomyolysis could have an affect on her musculature and fatigue levels as well. Dr. Frances was spoken with about her medication management and he is looking into this. He states that they may be cutting her off of her Neurontin, which may be causing some of her dizziness. CARLY
== END 2018-04-29 11:38 | disposition home or self-care (01) | DRG 372 ==
LOC: ER 06:10 → MED/SURG 10:29
PROVIDERS: ADMIT Internal Medicine; ATTEND Internal Medicine

== ENCOUNTER 2018-05-30 09:00 | Observation (INO) ==
--- NOTE | 2018-05-30 09:16 | PDOC ---
General Adult HPI - General Chief Complaint: Abdomen Pain Stated Complaint: HASN'T EATEN IN 3 DAYS, NAUSEA/ABD PAIN/DIARRHEA Date Seen by Provider: 05/30/18 Time Seen by Provider: 09:16 Source: POSITIVE: Patient - History of Present Illness Initial Comment: Shelli is a 62 year old woman coming in with loss of appetite and nausea with vomiting. Her symptoms have been getting worse for the past 3 days. She is having clear diarrhea. she was recently admitted here about a week ago and was treated for C-Diff colitis, although her c-diff was negative at the time. She lives at home with her , who states he can't take care of her there anymore. Her sister, who was helping with her care at home, recently . Shelli says she feels depressed. She says she has a mild cough and mild discomfort with urination. She is fatigued and has no energy. She recently was taken off her blood pressure medication, and has been inconsistent with taking her other medications. There has been no trauma or falls. Have you received a tetanus shot in the past 10 years?: No Body Location Affected: DENIES: Neck - Patient Home Medications Home Medications: Home Medications Calcium Carbonate/Vitamin D3 [Caltrate 600 W-D Tablet] 3 ea PO DAILY 07/15/08 Omeprazole [Prilosec] 1 cap ORAL QD #30 cap 12/08/14 Venlafaxine HCl ER [Effexor Xr] 2 cap ORAL QD #30 cap 02/14/16 HYDROcodone/APAP 5/325 Tab [[place] 5/325 Tab] 1 - 2 tab PO Q4H PRN #30 tab 05/06/17 aspirin 81 mg tablet,delayed release 1 tab PO QDAY tab 05/26/17 Gabapentin 1,600 mg ORAL BEDTIME 08/22/17 amlodipine 2.5 mg tablet 2.5 mg PO BID #30 tab 05/25/18 carvedilol 12.5 mg tablet 12.5 mg PO BID #60 tab 05/25/18 levothyroxine 50 mcg tablet 50 mcg PO QD #90 tab 05/25/18 simvastatin 20 mg tablet 20 mg PO QHS #90 tab 05/25/18 valacyclovir 500 mg tablet 500 mg PO QD #90 tab 05/25/18 doxazosin 1 mg tablet 1 mg PO QDAY #30 tab 05/26/18 - Patient Allergies Allergies/Adverse Reactions: Allergies Allergy/AdvReac Type Severity Reaction Status Date / Time oxycodone HCl [From Percocet] Allergy Mild NAUSEA Verified 05/30/18 09:29 Past Medical History - heen HEENT History: Hard of Hearing, Dentures/Partials Additional HEENT History: right ear. ACOUSTIC NEUROMOA Cardiovascular History: Hypertension, CAD, Hyperlipidemia Respiratory History: COPD, Other (please comment) Additional Respiratory History: CHRONIC TOBACCO ABUSE Gastrointestinal History: GERD, Gallbladder Disease, Other (please comment) Additional Gastrointestinal History: chronic constipation. new onset of diarrhea. C. DIFFICILE X2 IN 2018 Genitourinary History: Denies History Endocrine History: Hypothyroidism, Other (please comment) Additional Endocrine History: THYROID NODULE Musculoskeletal History: Osteoporosis, Back Pain, Joint Pain, Other (please comment) Prosthesis or Implant: Yes (neck, right eye lid) Additional Musculoskeletal History: LUMBAR SPONDYLOSIS. CERVICAL SPINE PAIN. OVERWEIGHT Neurological History: Frequent Headaches Additional Neurological History: BRAIN SURGERY 2009/ACOUSTIC NEUROMA Blood Disorders: Other (please comment) Additional Blood Disorders History: CHRONIC HEP C- MEDICALLY TREATED AND CLEARED Psychiatric History: Depression, Other (please comment) Additional Psychiatric History: INSOMNIA History of Sexually Transmitted Diseases: No Cancer History: Denies History History of MDRO: No History of Other Communicable Diseases: No Alcohol Use: None In the Past 12 Months, Have Used or Abuse Any Substance: None Previous Surgical History: Yes Type / Date of Surgery: TONSILLECTOMY. NEUROLOGIC SURGERY-ACOUSTIC NEUROMA- brain tumor removed. LUMBAR DECOMPRESSION. left RCR. r eye lid surgery. left ring finger sx. CERVICAL SPINE FUSION. tubal Anesthesia Reactions: No Malignant Hyperthermia: No Significant Family History: No pertinent family hx Past Medical History Reviewed: Reviewed - No Changes ROS - Limitations ROS Limitations: Other (please comment) (No limitations. All other systems negative except for as above in history of present illness.) General Adult Exam - General Appearance General Appearance: POSITIVE: No Acute Distress - HEENT HEENT: POSITIVE: Head Inspection Nml, Eyes Inspection Nml, Ears Inspection Nml - Pupils Pupil Size: 2 mm: Bilateral - Neck Neck: POSITIVE: Normal Inspection - Respiratory Respiratory: POSITIVE: No Respiratory Distress - Cardiovascular Cardiovascular: POSITIVE: Regular Rate & Rhythm, No Murmur Peripheral Pulses: Radial (R): 2+, Radial (L): 2+ - Abdomen Abdomen: Soft: (All Quadrants), No Distention: (All Quadrants), No Rigidity: (All Quadrants) Additional Abdominal Details: mild ttp in epigastric region - Back Back: POSITIVE: Normal Inspection - Skin Skin: POSITIVE: Dry, No Rash - Extremities Extremity: Non-Tender: (All Extremities), Normal Inspection: (All Extremities) - Neurological / Psychological Neurological: POSITIVE: Oriented X3, Other (chronic facial droop. depressed affect) General Adult Progress - Results Reviewed by me Xrays/CTs/US Reviewed by me: Yes Radiology Findings: CXR shows no lobar infiltrate, no pulmonary edema. CT head shows no acute findings. Lab Results:: Laboratory Results 05/30/18 05/30/18 05/30/18 09:40 09:40 09:40 WBC 11.20 H RBC 4.86 Hgb 15.1 Hct 43.3 MCV 89.1 MCH 31.1 H MCHC 34.9 RDW Std Deviation 48.2 RDW Coeff of [place] 14.9 H Plt Count 367 H MPV 9.1 Immature Gran % (Auto) 0.3 Neut % (Auto) 78.7 Lymph % (Auto) 14.6 [place] % (Auto) 6.3 Eos % (Auto) 0 Baso % (Auto) 0.1 Immature Gran # (Auto) 0.03 Neut # (Auto) 8.82 Lymph # (Auto) 1.63 [place] # (Auto) 0.71 Eos # (Auto) 0 Baso # (Auto) 0.01 WBC Morphology Comment Normal morphology Plt Morphology Comment Normal morphology RBC Morph Comment Normal morphology Sodium 142 Potassium 2.8 L Chloride 104 Carbon Dioxide 27 Anion Gap 11 BUN 13 Creatinine 0.6 Estimated GFR > 60 BUN/Creatinine Ratio 21.66 H Glucose 119 H Calculated Osmolality 294.0 H Lactic Acid 1.1 Calcium 10.3 Total Bilirubin 0.5 AST 23 ALT 12 Alkaline Phosphatase 103 Total Protein 7.7 Albumin 4.2 Globulin 3.5 Albumin/Globulin Ratio 1.20 L Lipase 141 Ur Collection Type Urine Color Urine Clarity Urine pH Ur Specific [place] U Specif Grav (Refrac) Urine Protein Urine Glucose (UA) Urine Ketones Urine Occult Blood Urine Nitrate Urine Bilirubin Urine Urobilinogen Ur Leukocyte Esterase Urine RBC Urine WBC Ur Squamous Epith Cells Ur Renal Epithelial Cell Urine Crystals Urine Bacteria Urine Casts Urine Mucus Urine Trichomonas Urine Yeast Urine Opiates Screen Ur Buprenorphine Ur Oxycodone Screen Urine Methadone Screen Ur Propoxyphene Screen Barbiturate Screen U Tricyclic Antidepress Phencyclidine Screen Amphetamines Screen U Methamphetamines Scrn Benzodiazepines Screen Cocaine Screen U Marijuana (THC) Screen Serum Alcohol 05/30/18 05/30/18 05/30/18 10:00 10:26 11:28 WBC RBC Hgb Hct MCV MCH MCHC RDW Std Deviation RDW Coeff of Ariane Plt Count MPV Immature Gran % (Auto) Neut % (Auto) Lymph % (Auto) [place] % (Auto) Eos % (Auto) Baso % (Auto) Immature Gran # (Auto) Neut # (Auto) Lymph # (Auto) [place] # (Auto) Eos # (Auto) Baso # (Auto) WBC Morphology Comment Plt Morphology Comment RBC Morph Comment Sodium Potassium Chloride Carbon Dioxide Anion Gap BUN Creatinine Estimated GFR BUN/Creatinine Ratio Glucose Calculated Osmolality Lactic Acid Calcium Total Bilirubin AST ALT Alkaline Phosphatase Total Protein Albumin Globulin Albumin/Globulin Ratio Lipase Ur Collection Type Clean catch urine Clean catch urine Urine Color Yellow Urine Clarity Clear Urine pH 7.0 Ur Specific [place] 1.020 U Specif Grav (Refrac) 1.020 Urine Protein 100 Urine Glucose (UA) Negative Urine Ketones 15 Urine Occult Blood Moderate Urine Nitrate Negative Urine Bilirubin Small Urine Urobilinogen 1.0 Ur Leukocyte Esterase Trace Urine RBC 5-10 Urine WBC 0-3 Ur Squamous Epith Cells Moderate Ur Renal Epithelial Cell None Urine Crystals Moderate Urine Bacteria Few Urine Casts None Urine Mucus Moderate Urine Trichomonas None Urine Yeast Few Urine Opiates Screen Positive H Ur Buprenorphine Negative Ur Oxycodone Screen Negative Urine Methadone Screen Negative Ur Propoxyphene Screen Negative Barbiturate Screen Negative U Tricyclic Antidepress Negative Phencyclidine Screen Negative Amphetamines Screen Negative U Methamphetamines Scrn Negative Benzodiazepines Screen Negative Cocaine Screen Negative U Marijuana (THC) Screen Negative Serum Alcohol < 10 CBC and BMP: 05/30/18 09:40 05/30/18 09:40 - Patient's Progress MDM / ED Course: Shelli Gabriel is a 62 year old woman coming in today with fatigue, vomiting, and decreased mental awareness. She also has acute hypokalemia, likely from her reduced oral intake. Her feels like he can't take care of her anymore. We replaced the potassium and gave her IV fluids. - Consult Consulting MD will see pt:: POSITIVE: [facility] [place] [facility] [place] Counseled: POSITIVE: Patient Patient Care Time - Estimated PCT Patient Care Time (In Minutes): 40 Vital Signs - Recent Vital Signs Vital Signs: Vital Signs (Last 8 hours) Temp Pulse Resp BP Pulse Ox 05/30/18 09:00 96.9 F 92 17 162/83 93 - VS Reviewed Vital Signs Reviewed: Yes Discharge Clinical Impression: Failure to thrive in adult, Hypokalemia Discharge Disposition: Admit to Inpatient Condition: Fair Follow Up With: BRIDGETTE HAYNES [Primary Care Provider] - Date Decision to Admit to Inpatient: 05/30/18 Time Decision to Admit to Inpatient: 11:19
[2018-05-30 09:43] LABS: BASOPHILS # (AUTO) 0.01 10*3/UL; BASOPHILS % (AUTO) 0.1 % (0-1); EOSINOPHILS # (AUTO) 0 10*3/UL; EOSINOPHILS % (AUTO) 0 % (0-8); Hematocrit [HCT] 43.3 % (37.0-47.0); Hemoglobin [HGB] 15.1 g/dL (12.0-16.0); LYMPHOCYTES # (AUTO) 1.63 10*3/uL; MEAN CORPUSCULAR HEMOGLOBIN 31.1 PG (27-31); MEAN CORPUSCULAR HGB CONC 34.9 g/dL (33-37); MEAN CORPUSCULAR VOLUME 89.1 FL (81-99); MEAN PLATELET VOLUME 9.1 FL (7.4-12.2); MONOCYTES # (AUTO) 0.71 10*3/UL (0.3-0.8); MONOCYTES % (AUTO) 6.3 % (5-15); NEUTROPHILS # (AUTO) 8.82 10*3/UL; NEUTROPHILS % (AUTO) 78.7 % (50-80); RED BLOOD COUNT 4.86 10^6/uL (4.20-5.40)
[2018-05-30 09:44] LABS: PLATELET MORPHOLOGY COMMENT NORMAL MORPHOLOGY (NORM); RBC MORPHOLOGY COMMENT NORMAL MORPHOLOGY (NORM); WBC MORPHOLOGY COMMENT NORMAL MORPHOLOGY (NORM)
[2018-05-30 09:55] LABS: BLOOD UREA NITROGEN 13 mg/dL (7-22); BUN/CREATININE RATIO 21.66 (6-20); LIPASE 141 IU/L (23-300); SERUM ALBUMIN 4.2 g/dL (3.5-4.8)
--- NOTE | 2018-05-30 10:36 | DI ---
PA /LATERAL CHEST, 05/30/2018 9:29 AM : Clinical History: Cough. Previous Exam: 04/27/2018. Comparison is also made with a CT scan of the chest from 04/28/2018. Soft Tissues: No acute soft tissue abnormality. Bones: Normal. Diffuse osteoporosis. Heart: Normal heart. Lungs: No infiltrates. There is a fine reticulonodular pattern along with Gavi A and Gavi B lines consistent with chronic interstitial pulmonary fibrosis. This was confirmed on the CT scan of the est as well. Effusion(s): None. Mediastinum: Normal mediastinum. Nodules: There is a 6 mm nodular density just above the right costophrenic angle toward the lateral c lavicular line it probably is the same nodule that was present on the CT scan of the chest from 2018. Readin. No acute infiltrate or effusion. 2. The nodular density on the PA film just above the right costophrenic angle probably is the same n odule noted on the CT scan of the chest from 04/17/2018. 3. Chronic interstitial pulmonary fibrosis.
[2018-05-30 10:42] LABS: BILIRUBIN,URINE SMALL (NEG); CLARITY,URINE CLEAR (CLEAR); COLOR,URINE YELLOW; GLUCOSE, URINE (UA) NEGATIVE (NEG); OCCULT BLOOD,URINE MODERATE (NEG); PROTEIN,URINE 100 mg/dl (NEG)
[2018-05-30 10:47] LABS: SQUAMOUS EPITHELIAL CELL,UR MODERATE; URINE SAMPLE TYPE CLEAN CATCH URINE; WBC,URINE 0-3
[2018-05-30 10:48] LABS: BACTERIA,URINE FEW; URINE CRYSTALS MODERATE; YEAST,URINE FEW
[2018-05-30] MEDS ORDERED: POTASSIUM CHLORIDE 20 MEQ TAB PO ONE (11:06)
[2018-05-30 11:49] LABS: AMPHETAMINE SCREEN NEGATIVE (NEG); CANNABINOID SCREEN,URINE NEGATIVE (NEG); COCAINE SCREEN NEGATIVE (NEG); METHADONE URINE SCREEN NEGATIVE (NEG); METHAMPHETAMINES SCREEN,URINE NEGATIVE (NEG); OPIATE SCREEN,URINE POSITIVE (NEG); URINE SAMPLE TYPE CLEAN CATCH URINE
--- NOTE | 2018-05-30 11:57 | DI ---
CT HEAD SCAN WITHOUT IV CONTRAST, 05/30/2018 11:15 AM : Clinical History: Confusion. Previous Exam: 04/27/2018. Comparison is also made with a pre-and postcontrast MRI brain scan from 09/15. Technique: Performed from the foramen magnum to vertex without IV contrast. Contrast Volume: None. 4th Ventricle: Normal. 3rd Ventricle: Mildly dilated, but normal for age. Lateral Ventricles: Mildly dilated, but normal for age. Sella: Normal size and normal pituitary gland. Cerebrum: Normal. No evidence of an acute hemorrhagic or bland infarct. No small vessel ischemic dise ase changes. Cerebellum: Normal. No cerebellopontine angle mass. Normal cerebellar tonsillar position. Brainstem: Normal. Atrophy: Moderate cerebellar and cerebral atrophy. Extracerebral Mantles/Midline Shift: No extracerebral mantle or dural lesion. No midline shift. Sinuses: Normal. Skull: Status post right temporal craniotomy. Orbits: There is a metallic implant over the anterior aspect of the right eye that generates substant ial artifacts at that level. The left orbit is normal. READIN. No acute hemorrhagic or bland infarct. Small vessel ischemic change noted. 2. Status post right temporal craniotomy with no postoperative sequelae noted. 3. Moderate cerebellar and cerebral atrophy. 4. There has been no significant interval change.
[2018-05-30] MEDS ORDERED: D5-1/2NS + 10mEq KCL 1,000 ML PRIMARY IV ONE (12:10)
[2018-05-30] MEDS ORDERED: D5-1/2NS + 20mEq KCL 1,000 ML PRIMARY IV ONE (12:12)
--- NOTE | 2018-05-30 12:41 | PDOC ---
HPI - History of Present Illness Date of Service: 05/30/18 Time of Service: 13:00 Chief Complaint: Nausea, vomiting a few days duration. Abdominal discomfort for a few days now. Problem with her speech for the last few weeks History of Present Illness: This is a 62 years old female with medical history significant for history of hypertension, hypothyroidism, history of previous acoustic neuroma status post surgery, history of C. difficile infection in the past, GERD and history of admission back in April this year for diarrhea secondary to Escherichia coli who was brought to the hospital by the because of decreased appetite, vomiting for the last few days, not eating the last few days and also abdominal pain, he did report also some declining in her appetite and also in her speech and because of that hr brought her to the ER. Evaluation in the ER revealed hypokalemia she was given some potassium, CT of the head did not show acute changes she continued to complain from pain and nausea and she was admitted. By the time I came in to see her she started to say more words compared to when she came in. She is having trouble remembering things. She did say that she had pain in the epigastrium comes and goes but could not give me more details though. She did say that she's been having some diarrhea she is not clear about when and how many time she had a bowel movement. She did say that she vomited twice. Apparently the patient did lose her sister maybe 2 or 3 weeks ago and she is very depressed about that. She did see her primary Dr. Summers recently and apparently the day she saw him she took double the dosage of her blood pressure medication and her blood pressure was low so these were discontinued. Her main complaint to me is epigastric pain. She seemed to be also somewhat restless and Emotional when I mention her sister. She denied suicidal ideation though. Past Medical History Medical History: 1. COPD. 2. Hypertension. 3. Hypothyroidism. 4. H yperlipidemia. 5. History of acaustic neuroma surgery few years back. 6. GERD. 7. History of hepatitis C with previous treatment for it, she was follwed by infectious disease in [place]. 8. History of chronic pain syndrome. 9. History of C. difficile infection. 10. History of admission back in May 2017 for diarrhea, had ileitis on CT then. 11. Admission in April 2018 for diarrhea secondary to Escherichia coli infection. Surgical History: 1. History of cholecystectomy done in April this year. 2. 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 3. History of for neck surgeries before. 4. History of for lumbar spine surgery. 5. History of tonsillectomy. 6. History of tubal ligation Past Social History: She smokes, pack would last 3-4 days, doesn't drink, no drugs. Tobacco Use: Current Every Day Smoker In the Past 12 Months, Have Used or Abuse Any of the Following Substance: None Medication / Allergies Home Medications: Home Medications Medication Instructions Recorded Confirmed Type Calcium Carbonate/Vitamin D3 3 ea PO DAILY 07/15/08 05/30/18 History [Caltrate 600 W-D Tablet] Omeprazole [Prilosec] 1 cap ORAL QD #30 cap 12/08/14 05/30/18 History Venlafaxine HCl ER [Effexor Xr] 2 cap ORAL QD #30 cap 02/14/16 05/30/18 Rx aspirin 81 mg tablet,delayed 1 tab PO QDAY tab 05/26/17 05/30/18 History release Gabapentin 1,600 mg ORAL BEDTIME 08/22/17 05/30/18 History amlodipine 2.5 mg tablet 2.5 mg PO BID #30 tab 05/25/18 05/30/18 Rx carvedilol 12.5 mg tablet 12.5 mg PO BID #60 tab 05/25/18 05/30/18 Rx levothyroxine 50 mcg tablet 50 mcg PO QD #90 tab 05/25/18 05/30/18 Rx simvastatin 20 mg tablet 20 mg PO QHS #90 tab 05/25/18 05/30/18 Rx valacyclovir 500 mg tablet 500 mg PO QD #90 tab 05/25/18 05/30/18 Rx doxazosin 1 mg tablet 1 mg PO QDAY #30 tab 05/26/18 05/30/18 Rx Albuterol Sulfate [Ventolin Hfa] 05/30/18 History Hydrocodone/Acetaminophen 7.5 mg PO Q4-6H PRN 05/30/18 05/30/18 History [Hydrocodone-Acetamin 7.5-325] Naloxone HCl [Narcan] 1 05/30/18 History Allergies/Adverse Reactions: Allergies Allergy/AdvReac Type Severity Reaction Status Date / Time oxycodone HCl [From Percocet] Allergy Mild NAUSEA Verified 05/30/18 09:29 Review of Systems - Review of Systems All Systems: Reviewed & No Additional Complaints Except as Stated Exam - Vitals Vital Signs: Vital Signs Temperature 96.9 F Temperature Source Temporal Artery Scan Pulse Rate [Pulse Oximeter] 92 Respiratory Rate 17 Blood Pressure [Left Arm] 162/83 Pulse Ox 93 Oxygen Delivery Method Room Air Height 5 ft 6 in Weight 115 lb - General General Appearance: No Acute Distress Additional General Exam Details: Somewhat restless, emotional at times - Head Head Exam: Normal Inspection - ENT Additonal ENT Exam Details: 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 No organomegaly. - Rectal Rectal Exam: POSITIVE: Deferred - External Exam: POSITIVE: Deferred Exam: POSITIVE: Deferred - Extremities Extremities Exam: POSITIVE: Normal Inspection - Back Back Exam: POSITIVE: Normal Inspection - Neurological Neurological Exam: POSITIVE: Alert Additional Neurological Exam Details: She knew the date during the month and year but she couldn't tell me the day of the week, she knew where she is at. She was able to count backwards from 10, s he was able to me a date of . - Psychiatric Psychiatric Exam: POSITIVE: Anxious Results - Labs CBC and BMP: 05/30/18 09:40 05/30/18 09:40 - Imaging Status: Report Reviewed by Me (CT 1. No acute hemorrhagic or bland infarct. Small vessel ischemic change noted. 2. Status post right temporal craniotomy with no postoperative sequelae noted. 3. Moderate cerebellar and cerebral atrophy. 4. There has been no significant interval change. Chest X ray 1. No acute infiltrate or effusion. 2. The nodular density on the PA film just above the right costophrenic angle probably is the same nodule noted on the CT scan of the chest from 04/17/2018. 3. Chronic interstitial pulmonary fibrosis.) Assessment and Plan - Patient Problems (1) Abdominal pain Current Visit: No Status: Acute Comment: Etiology unclear. Will do a CT of her abdomen. She had a history of C. difficile before and because of the diarrhea will order GI profile. will Put her on IV fluid. Code(s): R10.9 - Unspecified abdominal pain (2) Hypokalemia Current Visit: Yes Status: Acute Comment: We will put some potassium replacement. This may be secondary to diarrhea and vomiting. Code(s): E87.6 - Hypokalemia (3) Chronic pain syndrome Current Visit: Yes Status: Acute Comment: She is on hydrocodone every 4 hours as needed. However when we counted her pills she got a prescription in April 19 she got 540 pills, about 300 are gone bsed on our counting. Maybe that's the reason for her confusion. Code(s): G89.4 - Chronic pain syndrome (4) Depression (emotion) Current Visit: No Status: Chronic Comment: Continue previous medication but will consult [employer] to see her. Her issues may be secondary to depression and excessive pain medication. Code(s): F32.9 - Major depressive disorder, single episode, unspecified Qualifiers: Depression Type: reactive depression Qualified Code(s): F32.9 - Major depressive disorder, single episode, unspecified (5) Essential hypertension Current Visit: No Status: Acute Onset Date: 02/10/12 Comment: We'll restart her on the coreg will see what happens to her blood pressure and then will decide about restarting the rest of her medication. Code(s): I10 - Essential (primary) hypertension (6) Confusion Current Visit: No Status: Acute Comment: Maybe secondary to pain medication, she has a history of acoustic neuroma will order an MRI of the brain. Code(s): R41.0 - Disorientation, unspecified
[2018-05-30] MEDS ORDERED: ONDANSETRON 4 MG/2 ML VIAL IVP PRN (13:29)
[2018-05-30] MEDS ORDERED: DOCUSATE 100 MG CAPSULE PO PRN (13:29)
[2018-05-30] MEDS ORDERED: LIDOCAINE W/ SODIUM BICARB 0.5 ML SYR SUBD PRN (13:29)
[2018-05-30] MEDS ORDERED: ACETAMINOPHEN 325 MG TABLET PO PRN (13:29)
[2018-05-30] MEDS ORDERED: CALCIUM CARBONATE 500 MG (TUMS) CHEWABLE TABLET PO PRN (13:29)
[2018-05-30] MEDS ORDERED: HYDROcodone-APAP 5 MG -325 MG TABLET PO PRN (13:38)
[2018-05-30] MEDS ORDERED: CARVEDILOL 12.5 MG TABLET PO ONE (13:42)
--- NOTE | 2018-05-30 14:24 | DI ---
CT Abdomen/Pelvis W Contrast,05/30/2018 1:15 PM: Clinical History: Abdominal pain and vomiting. Previous Exam: None at this facility. Findings: Multiple helically acquired CT images are obtained through the abdomen and pelvis following the intra venous menstruation of 70 mL of Isovue 300. The lung bases are clear. The urinary bladder is unremarkable. There is no free fluid nor free air. The uterus and ovaries are unremarkable. The anterior abdominal wall and subcutaneous fat is unremarkable. Diffuse degenerative changes of the spine are seen. Lung bases are clear. There is some facet arthropathy and diffuse osteopenia. Multiple peripheral vascular calcifications are seen. The urinary bladder is unremarkable. The liver is unremarkable. Patient is status post cholecystectomy. The spleen, adrenals, kidneys and pancreas are unremarkable. Large and small bowel loops are unremarkable. No mesenteric or retroperitoneal lymphadenopathy. There is no evidence of acute appendicitis. Impression: 1. No acute intra-abdominal pathology. 2. Degenerative changes of the lumbar spine.
[2018-05-30] MEDS: HYDROcodone-APAP 7.5 MG-325 MG TABLET PO PRN ×2 (15:05→19:13)
[2018-05-30] MEDS: NICOTINE 21 MG /DAY PATCH TRANSDERM SCH (15:06)
[2018-05-30] MEDS: POTASSIUM CHLORIDE 20 MEQ TAB PO SCH (16:16)
[2018-05-30] MEDS: CARVEDILOL 12.5 MG TABLET PO SCH (20:36)
[2018-05-30] MEDS ORDERED: GABAPENTIN 400 MG CAPSULE PO SCH (21:00)
[2018-05-30] MEDS ORDERED: Simvastatin Tab 20 MG TAB PO SCH (21:00)
[2018-05-31] MEDS: HYDROcodone-APAP 7.5 MG-325 MG TABLET PO PRN ×3 (00:35→09:46)
[2018-05-31] MEDS ORDERED: LEVOTHYROXINE 50 MCG TABLET PO SCH (05:30)
[2018-05-31 05:41] LABS: BASOPHILS # (AUTO) 0.02 10*3/UL; BASOPHILS % (AUTO) 0.2 % (0-1); EOSINOPHILS # (AUTO) 0.08 10*3/UL; EOSINOPHILS % (AUTO) 0.9 % (0-8); Hemoglobin [HGB] 13.1 g/dL (12.0-16.0); LYMPHOCYTES # (AUTO) 2.49 10*3/uL; MEAN CORPUSCULAR HEMOGLOBIN 29.6 PG (27-31); MEAN CORPUSCULAR HGB CONC 32.8 g/dL (33-37); MEAN CORPUSCULAR VOLUME 90.5 FL (81-99); MEAN PLATELET VOLUME 9.5 FL (7.4-12.2); MONOCYTES # (AUTO) 0.89 10*3/UL (0.3-0.8); NEUTROPHILS # (AUTO) 5.39 10*3/UL; NEUTROPHILS % (AUTO) 60.8 % (50-80); RED BLOOD COUNT 4.42 10^6/uL (4.20-5.40)
[2018-05-31 05:54] LABS: BLOOD UREA NITROGEN 13 mg/dL (7-22); BUN/CREATININE RATIO 21.66 (6-20); SERUM ALBUMIN 3.4 g/dL (3.5-4.8)
[2018-05-31 06:05] LABS: PLATELET MORPHOLOGY COMMENT NORMAL MORPHOLOGY (NORM); RBC MORPHOLOGY COMMENT NORMAL MORPHOLOGY (NORM); WBC MORPHOLOGY COMMENT NORMAL MORPHOLOGY (NORM)
[2018-05-31 06:40] VITALS: O2SAT 95
[2018-05-31] MEDS: POTASSIUM CHLORIDE 20 MEQ TAB PO SCH (06:56)
--- NOTE | 2018-05-31 06:57 | DI ---
MRI Brain WO Contrast 05/31/2018 6:00 AM History: [facility] [place] [facility] ^change in mental status, history acoustic neuroma Comparison: MRI brain 04/27/2018. Technique: Routine noncontrast multiecho multiplanar MR imaging of the brain was performed. Findings: Right frontotemporal postsurgical changes are again noted. There is no evidence of acute or chronic hemorrhage. No extra-axial fluid collections are present. There is no focal mass or mass- ef fect. The ventricles and cisterns are normal in size and contour. There is normal anatomic appearance of the midline structures. Scattered T2/FLAIR hyperintensities are present within the subcortical an d periventricular white matter, not significantly changed from prior imaging. There is no diffusion r estriction. The cerebral vasculature is grossly normal in appearance. The orbits and paranasal sinuse s are unremarkable. Impression: 1. No MR evidence of acute intracranial pathology. 2. Scattered T2/FLAIR hyperintensities are not significantly changed from prior imaging.
[2018-05-31] MEDS ORDERED: OMEPRAZOLE 20 MG CAPSULE PO SCH (07:00)
--- NOTE | 2018-05-31 08:27 | DCSUMMARY ---
Hospitalization Summary Admit Date: 05/30/2018 Discharge Date: 05/31/18 Hospital Course: Discharge diagnoses 1. Alteration in mental status improved, unclear etiology 2. Hypokalemia 3. History of C. difficile 4. History of COPD 5. History of hypothyroidism 6. History of for acaustic neuroma surgery few years back 7. GERD 8. History of hepatitis C with previous treatment for it 9. History of chronic pain syndrome 10. History of admission in April 2018 for diarrhea secondary to Escherichia coli infection Hospital course This is a 62 years old female with medical history significant for history of hypertension, hypothyroidism, history of acoustic neuroma status post surgery in the past, history of C. difficile infection the past, GERD and history of admission back in April this year for diarrhea secondary to Escherichia coli was brought to the hospital by her because of decreased appetite, vomiting the last few days, not eating the last few days and also abdominal pain and he did also report a decline in her appetite and also in his speech and maybe alteration in her mentation. Evaluation in the ER revealed hypokalemia and she was given some potassium, CT of the head did not show acute changes and she was admitted to the hospital. When she came in she seems to be better than the description of her not talking down in the ER. She did mention abdominal pain also some diarrhea and vomiting. Exam she had some epigastric tenderness. We did do a CT of the abdomen there is no acute findings. We did MRI of the brain with no acute findings. The potassium did improve the next day. The next day she was feeling better she looked more like back to her usual self. She did lose her sister recently and she is very emotional and depressed about it. We did ask for [facility] consult. The exact change in her mentation is not clear to me. The brought her medication and we saw a difference between her pain medication count and what she supposed to be on but she said that she keep the rest of her medication in a safe. I did mention to the that probably need to have a pillbox to monitor her medication intake. We did order a C. difficile test but she did not give us a sample.. I did tell him if it is negative then she still needs follow-up with [employer] pinner to have upper and lower endoscopy as we don't have a clear explanation for her weight loss and the persistent diarrhea. I did give her an order for outpatient C. difficile. Laboratory Results 05/30/18 05/30/18 05/30/18 09:40 09:40 09:40 WBC 11.20 H RBC 4.86 Hgb 15.1 Hct 43.3 MCV 89.1 MCH 31.1 H MCHC 34.9 RDW Std Deviation 48.2 RDW Coeff of Ariane 14.9 H Plt Count 367 H MPV 9.1 Immature Gran % (Auto) 0.3 Neut % (Auto) 78.7 Lymph % (Auto) 14.6 [place] % (Auto) 6.3 Eos % (Auto) 0 Baso % (Auto) 0.1 Immature Gran # (Auto) 0.03 Neut # (Auto) 8.82 Lymph # (Auto) 1.63 [place] # (Auto) 0.71 Eos # (Auto) 0 Baso # (Auto) 0.01 WBC Morphology Comment Normal morphology Plt Morphology Comment Normal morphology RBC Morph Comment Normal morphology Sodium 142 Potassium 2.8 L Chloride 104 Carbon Dioxide 27 Anion Gap 11 BUN 13 Creatinine 0.6 Estimated GFR > 60 BUN/Creatinine Ratio 21.66 H Glucose 119 H Calculated Osmolality 294.0 H Lactic Acid 1.1 Calcium 10.3 Magnesium Total Bilirubin 0.5 AST 23 ALT 12 Alkaline Phosphatase 103 Total Protein 7.7 Albumin 4.2 Globulin 3.5 Albumin/Globulin Ratio 1.20 L Lipase 141 TSH Ur Collection Type Urine Color Urine Clarity Urine pH Ur Specific [place] U Specif Grav (Refrac) Urine Protein Urine Glucose (UA) Urine Ketones Urine Occult Blood Urine Nitrate Urine Bilirubin Urine Urobilinogen Ur Leukocyte Esterase Urine RBC Urine WBC Ur Squamous Epith Cells Ur Renal Epithelial Cell Urine Crystals Urine Bacteria Urine Casts Urine Mucus Urine Trichomonas Urine Yeast Urine Opiates Screen Ur Buprenorphine Ur Oxycodone Screen Urine Methadone Screen Ur Propoxyphene Screen Barbiturate Screen U Tricyclic Antidepress Phencyclidine Screen Amphetamines Screen U Methamphetamines Scrn Benzodiazepines Screen Cocaine Screen U Marijuana (THC) Screen Serum Alcohol 05/30/18 05/30/18 05/30/18 10:00 10:26 11:28 WBC RBC Hgb Hct MCV MCH MCHC RDW Std Deviation RDW Coeff of Ariane Plt Count MPV Immature Gran % (Auto) Neut % (Auto) Lymph % (Auto) [place] % (Auto) Eos % (Auto) Baso % (Auto) Immature Gran # (Auto) Neut # (Auto) Lymph # (Auto) [place] # (Auto) Eos # (Auto) Baso # (Auto) WBC Morphology Comment Plt Morphology Comment RBC Morph Comment Sodium Potassium Chloride Carbon Dioxide Anion Gap BUN Creatinine Estimated GFR BUN/Creatinine Ratio Glucose Calculated Osmolality Lactic Acid Calcium Magnesium Total Bilirubin AST ALT Alkaline Phosphatase Total Protein Albumin Globulin Albumin/Globulin Ratio Lipase TSH Ur Collection Type Clean catch urine Clean catch urine Urine Color Yellow Urine Clarity Clear Urine pH 7.0 Ur Specific [place] 1.020 U Specif Grav (Refrac) 1.020 Urine Protein 100 Urine Glucose (UA) Negative Urine Ketones 15 Urine Occult Blood Moderate Urine Nitrate Negative Urine Bilirubin Small Urine Urobilinogen 1.0 Ur Leukocyte Esterase Trace Urine RBC 5-10 Urine WBC 0-3 Ur Squamous Epith Cells Moderate Ur Renal Epithelial Cell None Urine Crystals Moderate Urine Bacteria Few Urine Casts None Urine Mucus Moderate Urine Trichomonas None Urine Yeast Few Urine Opiates Screen Positive H Ur Buprenorphine Negative Ur Oxycodone Screen Negative Urine Methadone Screen Negative Ur Propoxyphene Screen Negative Barbiturate Screen Negative U Tricyclic Antidepress Negative Phencyclidine Screen Negative Amphetamines Screen Negative U Methamphetamines Scrn Negative Benzodiazepines Screen Negative Cocaine Screen Negative U Marijuana (THC) Screen Negative Serum Alcohol < 10 05/30/18 05/31/18 05/31/18 13:16 05:05 05:05 WBC 8.88 RBC 4.42 Hgb 13.1 Hct 40.0 MCV 90.5 MCH 29.6 MCHC 32.8 L RDW Std Deviation 48.7 RDW Coeff of Ariane 15.0 H Plt Count 314 MPV 9.5 Immature Gran % (Auto) 0.1 Neut % (Auto) 60.8 Lymph % (Auto) 28.0 [place] % (Auto) 10.0 Eos % (Auto) 0.9 Baso % (Auto) 0.2 Immature Gran # (Auto) 0.01 Neut # (Auto) 5.39 Lymph # (Auto) 2.49 [place] # (Auto) 0.89 H Eos # (Auto) 0.08 Baso # (Auto) 0.02 WBC Morphology Comment Normal morphology Plt Morphology Comment Normal morphology RBC Morph Comment Normal morphology Sodium 144 Potassium 3.6 L Chloride 112 Carbon Dioxide 24 Anion Gap 8 BUN 13 Creatinine 0.6 Estimated GFR > 60 BUN/Creatinine Ratio 21.66 H Glucose 113 H Calculated Osmolality 298.0 H Lactic Acid Calcium 9.6 Magnesium 2.0 Total Bilirubin 0.4 AST 20 ALT 21 D Alkaline Phosphatase 71 Total Protein 6.2 Albumin 3.4 L Globulin 2.8 Albumin/Globulin Ratio 1.20 L Lipase TSH Ur Collection Type Urine Color Urine Clarity Urine pH Ur Specific [place] U Specif Grav (Refrac) Urine Protein Urine Glucose (UA) Urine Ketones Urine Occult Blood Urine Nitrate Urine Bilirubin Urine Urobilinogen Ur Leukocyte Esterase Urine RBC Urine WBC Ur Squamous Epith Cells Ur Renal Epithelial Cell Urine Crystals Urine Bacteria Urine Casts Urine Mucus Urine Trichomonas Urine Yeast Urine Opiates Screen Ur Buprenorphine Ur Oxycodone Screen Urine Methadone Screen Ur Propoxyphene Screen Barbiturate Screen U Tricyclic Antidepress Phencyclidine Screen Amphetamines Screen U Methamphetamines Scrn Benzodiazepines Screen Cocaine Screen U Marijuana (THC) Screen Serum Alcohol 05/31/18 05:05 WBC RBC Hgb Hct MCV MCH MCHC RDW Std Deviation RDW Coeff of Ariane Plt Count MPV Immature Gran % (Auto) Neut % (Auto) Lymph % (Auto) [place] % (Auto) Eos % (Auto) Baso % (Auto) Immature Gran # (Auto) Neut # (Auto) Lymph # (Auto) [place] # (Auto) Eos # (Auto) Baso # (Auto) WBC Morphology Comment Plt Morphology Comment RBC Morph Comment Sodium Potassium Chloride Carbon Dioxide Anion Gap BUN Creatinine Estimated GFR BUN/Creatinine Ratio Glucose Calculated Osmolality Lactic Acid Calcium Magnesium Total Bilirubin AST ALT Alkaline Phosphatase Total Protein Albumin Globulin Albumin/Globulin Ratio Lipase TSH 3.75 Ur Collection Type Urine Color Urine Clarity Urine pH Ur Specific [place] U Specif Grav (Refrac) Urine Protein Urine Glucose (UA) Urine Ketones Urine Occult Blood Urine Nitrate Urine Bilirubin Urine Urobilinogen Ur Leukocyte Esterase Urine RBC Urine WBC Ur Squamous Epith Cells Ur Renal Epithelial Cell Urine Crystals Urine Bacteria Urine Casts Urine Mucus Urine Trichomonas Urine Yeast Urine Opiates Screen Ur Buprenorphine Ur Oxycodone Screen Urine Methadone Screen Ur Propoxyphene Screen Barbiturate Screen U Tricyclic Antidepress Phencyclidine Screen Amphetamines Screen U Methamphetamines Scrn Benzodiazepines Screen Cocaine Screen U Marijuana (THC) Screen Serum Alcohol Discharge instruction Diet regular Activity as tolerated Medications Current Medication(s) Medication Instructions Recorded Confirmed Type Calcium Carbonate/Vitamin D3 3 ea PO DAILY 07/15/08 05/30/18 History [Caltrate 600 W-D Tablet] Omeprazole [Prilosec] 1 cap ORAL QD #30 cap 12/08/14 05/30/18 History Venlafaxine HCl ER [Effexor Xr] 2 cap ORAL QD #30 cap 02/14/16 05/30/18 Rx aspirin 81 mg tablet,delayed 1 tab PO QDAY tab 05/26/17 05/30/18 History release Gabapentin 1,600 mg ORAL BEDTIME 08/22/17 05/30/18 History amlodipine 2.5 mg tablet 2.5 mg PO BID #30 tab 05/25/18 05/30/18 Rx carvedilol 12.5 mg tablet 12.5 mg PO BID #60 tab 05/25/18 05/30/18 Rx levothyroxine 50 mcg tablet 50 mcg PO QD #90 tab 05/25/18 05/30/18 Rx simvastatin 20 mg tablet 20 mg PO QHS #90 tab 05/25/18 05/30/18 Rx valacyclovir 500 mg tablet 500 mg PO QD #90 tab 05/25/18 05/30/18 Rx doxazosin 1 mg tablet 1 mg PO QDAY #30 tab 05/26/18 05/30/18 Rx Albuterol Sulfate [Ventolin Hfa] 05/30/18 History Hydrocodone/Acetaminophen 7.5 mg PO Q4-6H PRN 05/30/18 05/30/18 History [Hydrocodone-Acetamin 7.5-325] Naloxone HCl [Narcan] 1 05/30/18 History Potassium Chloride [Klor-Con] 10 meq PO DAILY #5 tab 05/31/18 Rx Follow-up with PCP in 1-2 weeks Condition at discharge was stable for discharge Exam - Vitals Vital Signs: Vital Signs Temperature 97.9 F Temperature Source Temporal Artery Scan Pulse Rate [Pulse Oximeter] 65 Pulse Rate 71 Respiratory Rate 18 Blood Pressure [Left Arm] 166/68 Blood Pressure 160/91 Pulse Ox 95 Oxygen Delivery Method Room Air Height 5 ft 6 in Weight 110 lb 9.6 oz - General General Appearance: No Acute Distress, Cooperative - Head Additional Head Exam Details: Right facial droop which is old - Eye Eye Exam: POSITIVE: Normal Appearance - ENT ENT Exam: POSITIVE: Normal Exam - Neck Neck Exam: Normal Inspection - Respiratory Respiratory Exam: POSITIVE: Clear to Auscultation - Bilaterally - Cardiovascular Cardiovascular Exam: POSITIVE: RRR - GI/Abdominal GI/Abdominal Exam: POSITIVE: Normal Bowel Sounds, Non Tender, Non Distended, Soft, No Organomegaly - Rectal Rectal Exam: POSITIVE: Deferred - External Exam: POSITIVE: Deferred Exam: POSITIVE: Deferred - Extremities Extremities Exam: POSITIVE: Normal Inspection - Back Back Exam: POSITIVE: Normal Inspection - Neurological Neurological Exam: POSITIVE: Alert, Oriented x 3, CN II-XII Intact, Speech Intact / Clear Additional Neurological Exam Details: Right facial droop which is old - Psychiatric Psychiatric Exam: POSITIVE: Flat Affect Patient Problems - Patient Problem List (1) Abdominal pain Current Visit: No Status: Acute Code(s): R10.9 - Unspecified abdominal pain Category: Medical (2) Hypokalemia Current Visit: Yes Status: Acute Code(s): E87.6 - Hypokalemia Category: Medical (3) Chronic pain syndrome Current Visit: Yes Status: Acute Code(s): G89.4 - Chronic pain syndrome Category: Medical (4) Depression (emotion) Current Visit: No Status: Chronic Code(s): F32.9 - Major depressive disorder, single episode, unspecified Qualifiers: Depression Type: reactive depression Qualified Code(s): F32.9 - Major depressive disorder, single episode, unspecified Category: Medical (5) Essential hypertension Current Visit: No Status: Acute Onset Date: 02/10/12 Code(s): I10 - Essential (primary) hypertension Category: Medical (6) Confusion Current Visit: No Status: Acute Code(s): R41.0 - Disorientation, unspecified Category: Medical
[2018-05-31] MEDS ORDERED: valACYclovir Tab 500 MG TAB PO SCH (09:00)
[2018-05-31] MEDS ORDERED: Patch Removal NICOTINE PATCH TRANSDERM SCH (09:00)
[2018-05-31] MEDS ORDERED: VENLAFAXINE XR 75 MG CAP PO SCH (09:00)
[2018-05-31] MEDS ORDERED: AmLODIPine Tab 2.5 MG TABLET PO SCH (09:00)
[2018-05-31] MEDS ORDERED: ASPIRIN EC 81 MG TABLET PO SCH (09:00)
[2018-05-31] MEDS: NICOTINE 21 MG /DAY PATCH TRANSDERM SCH (09:26)
[2018-05-31] MEDS: CARVEDILOL 12.5 MG TABLET PO SCH (09:27)
[2018-05-31 11:53] VITALS: BP 171/72; RESP 17; TEMP 98
== END 2018-05-31 12:27 | disposition home or self-care (01) ==
LOC: ER 09:00 → MED/SURG 12:26 → INTOOBSV 12:26 → MED/SURG 12:30
PROVIDERS: ADMIT Internal Medicine; ATTEND Internal Medicine